=== PATIENT | male | born 1990 | race Caucasian/White ===

== ENCOUNTER 2017-03-06 12:39 | Emergency (ER) | payer SELFPAY ==
--- NOTE | 2017-03-06 13:00 | PDOC ---
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 Patient states has had no fever, chills lower abdominal pain, back pain, change in urine pattern or change in bowel pattern. Patient states has been seen here in the past and was told to follow-up with [facility] but states he didn't, since symptoms resolved. Patient states no recent travel, recent illness, recent change in weight, rashes, chest pain,shortness of breath, or recent sick contacts,. Timing/Duration: reports: getting worse, intermittent Quality: reports: cramping, sharpness Abdominal Pain Onset Location: reports: epigastric Pain Radiation: reports: RUQ, LUQ Activities at Onset: reports: none Aggravating Factors: improves with: None Alleviating Factors: improves with: None <Dary Moyer - Last Filed: 03/06/17 18:46> <Angelica Erazo - Last Filed: 03/06/17 20:44> - General Chief Complaint: Pain Stated Complaint: ABD PAIN Time Seen by Provider: 03/06/17 12:50 Past History - Travel Traveled outside of the country in the last 30 days: No Close contact w/someone who was outside of country & ill: No - Psycho/Social/Smoking Cessation Hx Anxiety: No Suicidal Ideation: No Smoking History: Current every day smoker Number of Cigarettes Smoked Daily: 10 Substance Use Type: Alcohol, Marijuana Hx Substance Use Treatment: Yes Patient Lives Alone: No <Dary Moyer - Last Filed: 03/06/17 18:46> <Angelica Erazo - Last Filed: 03/06/17 20:44> - Past Medical History Allergies/Adverse Reactions: Allergies Allergy/AdvReac Type Severity Reaction Status Date / Time No Known Allergies Allergy Verified 03/06/17 13:09 Home Medications: Ambulatory Orders Famotidine [Pepcid] 40 mg PO DAILY #10 tablet 04/03/14 Ondansetron [Zofran *Odt*] 8 mg SL TID PRN #21 od.tablet 03/06/17 Abd/GI Specific PMHX - Complaint Specific PMHX Colitis: No Gall Bladder Disease: No GERD: No 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)) GI Ulcer Disease: No <Dary Moyer - Last Filed: 03/06/17 18:46> Review of Systems - Review of Systems Able to Perform ROS?: Yes Is the patient limited Kosovan proficient: No Constitutional: No: Symptoms Reported HEENTM: No: Symptoms Reported Respiratory: No: Symptoms reported ABD/GI: Yes: Nausea, Poor Appetite, Poor Fluid Intake, Vomiting, Abdominal cramping : No: Symptoms Reported Musculoskeletal: No: Symptoms Reported Integumentary: No: Symptoms Reported Neurological: No: Symptoms reported Endocrine: No: Symptoms Reported Hematologic/Lymphatic: No: Symptoms Reported <Dary Moyer - Last Filed: 03/06/17 18:46> *Physical Exam - Physical Exam General Appearance: Yes: Nourished, Appropriately Dressed. No: Apparent Distress HEENT: positive: Pharynx Normal (dry) Neck: positive: Supple Respiratory/Chest: positive: Lungs Clear, Normal Breath Sounds. negative: Respiratory Distress, Accessory Muscle Use Cardiovascular: positive: Regular Rhythm, Bradycardia. negative: Murmur Gastrointestinal/Abdominal: positive: Soft, Tenderness (greater in the epigastric region. moderate tenderness to right upper quadrant. Negative [place] sign, mild rebound and guarding.) Musculoskeletal: negative: CVA Tenderness Extremity: positive: Normal Capillary Refill Integumentary: positive: Normal Color, Warm, Moist Neurologic: positive: Normal Mood/Affect, Motor Strength 5/5 (ambulatoruy) <Dary Moyer - Last Filed: 03/06/17 18:46> - Vital Signs Last Vital Signs Temp Pulse Resp BP Pulse Ox 97.9 F 48 L 16 131/86 100 03/06/17 12:40 03/06/17 12:40 03/06/17 12:40 03/06/17 12:40 03/06/17 12:40 <Angelica Erazo - Last Filed: 03/06/17 20:44> ED Treatment Course - LABORATORY CBC & Chemistry Diagram: 03/06/17 14:19 03/06/17 14:19 <Dary Moyer - Last Filed: 03/06/17 18:46> - LABORATORY CBC & Chemistry Diagram: 03/06/17 14:19 03/06/17 14:19 - ADDITIONAL ORDERS Additional order review: Laboratory Results 03/06/17 03/06/17 03/06/17 18:25 17:20 17:20 Sodium Potassium Chloride Carbon Dioxide Anion Gap BUN Creatinine Creat Clearance w eGFR Random Glucose Lactic Acid 1.6 Calcium Magnesium Total Bilirubin AST ALT Alkaline Phosphatase Total Protein Albumin Lipase Urine Color Ltyellow Urine Appearance Clear Urine pH 6.0 Urine Protein Negative Urine Glucose (UA) Negative Urine Ketones 1+ H Urine Blood Negative Urine Nitrite Negative Urine Bilirubin Negative Urine Urobilinogen Negative Ur Leukocyte Esterase Negative Opiates Screen Negative Methadone Screen Negative Barbiturate Screen Negative Phencyclidine Screen Negative Ur Amphetamines Screen Negative MDMA (Ecstasy) Screen Negative Benzodiazepines Screen Negative Cocaine Screen Negative U Marijuana (THC) Screen Positive 03/06/17 14:19 Sodium 143 Potassium 3.8 Chloride 104 Carbon Dioxide 23 Anion Gap 16 BUN 8 D Creatinine 1.0 Creat Clearance w eGFR > 60 Random Glucose 141 H D Lactic Acid Calcium 10.2 H Magnesium 2.4 D Total Bilirubin 1.7 H D AST 23 ALT 41 D Alkaline Phosphatase 119 H Total Protein 8.2 Albumin 4.9 Lipase 62 L Urine Color Urine Appearance Urine pH Urine Protein Urine Glucose (UA) Urine Ketones Urine Blood Urine Nitrite Urine Bilirubin Urine Urobilinogen Ur Leukocyte Esterase Opiates Screen Methadone Screen Barbiturate Screen Phencyclidine Screen Ur Amphetamines Screen MDMA (Ecstasy) Screen Benzodiazepines Screen Cocaine Screen U Marijuana (THC) Screen 03/06/17 14:19 RBC 5.61 H MCV 85.6 MCHC 33.3 RDW 13.1 MPV 10.1 Neutrophils % 87.9 H Lymphocytes % 7.6 L D Monocytes % 3.9 Eosinophils % 0.1 Basophils % 0.5 - Medications Given in the ED: ED Medications Discontinued Medications Generic Name Dose Route Start Last Admin Trade Name Freq PRN Reason Stop Dose Admin Diphenhydramine HCl 50 mg 03/06/17 13:03 03/06/17 13:45 Benadryl Injection - IVPB 03/06/17 13:04 50 mg ONCE ONE Administration Sodium Chloride 1,000 mls @ 1,000 mls/hr 03/06/17 13:03 03/06/17 13:45 Normal Saline - IV 03/06/17 14:02 1,000 mls/hr ASDIR STA Administration Famotidine/Sodium Chloride 20 50 mls @ 100 mls/hr 03/06/17 13:04 03/06/17 13:45 mg/ Miscellaneous IVPB 03/06/17 13:33 100 mls/hr ONCE ONE Administration Sodium Chloride 1,000 mls @ 1,000 mls/hr 03/06/17 15:08 03/06/17 15:45 Normal Saline - IV 03/06/17 16:07 1,000 mls/hr ASDIR STA Administration Ketorolac Tromethamine 30 mg 03/06/17 13:04 03/06/17 13:45 Toradol Injection - IVPUSH 03/06/17 13:05 30 mg ONCE ONE Administration Metoclopramide HCl 10 mg 03/06/17 13:03 03/06/17 13:45 Reglan Injection - IVPB 03/06/17 13:04 10 mg ONCE ONE Administration Ondansetron HCl 4 mg 03/06/17 16:09 03/06/17 16:02 Zofran Injection IVPUSH 03/06/17 16:10 4 mg NOW ONE Administration <Angelica Erazo - Last Filed: 03/06/17 20:44> Medical Decision Making - Medical Decision Making 03/06/17 13:27 Patient for evaluation of nausea vomiting and abdominal pain since yesterday. Patient CM had point tenderness to the epigastric right upper quadrant and left upper quadrant region. Patient had normal bowel sounds and no distention. Patient with history of EtOH and marijuana use. Patient concerning for cyclic vomiting versus gastritis versus Enteritis versus pancreatitis. Patient ordered for CBC, comp, magnesium, lipase and urinalysis, urine drug toxicology, Benadryl, Pepcid, Zofran and Toradol. Patient also ordered for IV fluids. 03/06/17 15:07 Laboratory Tests 03/06/17 03/06/17 14:19 14:19 WBC 15.4 H Hgb 16.0 Hct 48.0 Neutrophils % 87.9 H Lymphocytes % 7.6 L D Sodium 143 Potassium 3.8 Chloride 104 Anion Gap 16 BUN 8 D Creatinine 1.0 Random Glucose 141 H D Calcium 10.2 H Magnesium 2.4 D Total Bilirubin 1.7 H D Alkaline Phosphatase 119 H Lipase 62 L 03/06/17 18:47 Laboratory Tests 03/06/17 17:20 Urine Ketones 1+ H Urine Blood Negative Urine Nitrite Negative Ur Leukocyte Esterase Negative Patient's lactic acid was now sent. Urine drug toxicology pending. Patient requesting ice chips with water. Patient given pitcher as requested. Patient will be reevaluated shortly. <Dary Moyer - Last Filed: 03/06/17 18:46> *DC/Admit/Observation/Transfer <ComfortDary - Last Filed: 03/06/17 18:46> - Discharge Dispostion Admit: No <Angelica Erazo - Last Filed: 03/06/17 20:44> Diagnosis at time of Disposition: Cyclical vomiting Qualifiers: Vomiting Intractability: non-intractable Nausea presence: with nausea Qualified Code(s): G43.A0 - Cyclical vomiting, not intractable - Discharge Dispostion Disposition: HOME Condition at time of disposition: Stable - Prescriptions Prescriptions: Ondansetron [Zofran *Odt*] 8 mg SL TID PRN #21 od.tablet PRN Reason: Nausea And/Or Vomiting - Patient Instructions Printed Discharge Instructions: DI for Vomiting -- Adult
[2017-03-06] MEDS ORDERED: METOCLOPRAMIDE HCL INJECTION 10 MG/2 ML VIAL IVPB ONE (13:03)
[2017-03-06] MEDS ORDERED: SODIUM CHLORIDE 1,000 ML IV STA ×2 (13:03→15:08)
[2017-03-06] MEDS ORDERED: KETOROLAC TROMETHAMINE 30 MG/1 ML VIAL IVPUSH ONE (13:04)
[2017-03-06] MEDS ORDERED: FAMOTIDINE 20 MG/50 ML IVPB 20 MG in PREMIX 50 IVPB ONE (13:04)
[2017-03-06 13:09] VITALS: BP 131/86; PULSE 48; TEMP 97.9; BMI 22.8
[2017-03-06] MEDS ORDERED: METOCLOPRAMIDE HCL INJECTION 10 MG/2 ML VIAL ONE (13:45)
[2017-03-06] MEDS ORDERED: FAMOTIDINE 20 MG/50 ML IVPB 50 ML IVPB ONE (13:46)
[2017-03-06] MEDS ORDERED: KETOROLAC TROMETHAMINE 30 MG/1 ML VIAL ONE (13:46)
[2017-03-06 14:38] LABS: BASOPHIL 0.5 % (0-2.0); EOSINOPHIL 0.1 % (0-4.5); MCH 28.5 pg (25.7-33.7); MCHC 33.3 g/dl (32.0-35.9); MEAN CELL VOLUME 85.6 fl (80-96); MEAN PLT VOLUME 10.1 fl (7.5-11.1); NEUTROPHILS 87.9 % (42.8-82.8); PLATELET COUNT 257 K/MM3 (134-434); RDW 13.1 % (11.9-15.9); WHITE BLOOD COUNT 15.4 K/mm3 (4.0-10.0)
[2017-03-06 14:57] LABS: ALBUMIN 4.9 g/dl (3.4-5.0); ALK PHOS 119 U/L (45-117); ANION GAP 16 (8-16); BILIRUBIN,TOTAL 1.7 mg/dL (0.2-1.0); CALCIUM 10.2 mg/dL (8.5-10.1); CO2 23 mmol/L (21-32); GLUCOSE,RANDOM 141 mg/dL (74-106); MAGNESIUM 2.4 mg/dL (1.8-2.4); SGOT/AST 23 U/L (15-37); SGPT/ALT 41 U/L (12-78); TOT PROT 8.2 g/dl (6.4-8.2)
[2017-03-06] MEDS ORDERED: ONDANSETRON 4 MG/2 ML VIAL ONE (16:02)
[2017-03-06] MEDS ORDERED: ONDANSETRON 4 MG/2 ML VIAL IVPUSH ONE (16:09)
--- NOTE | 2017-03-06 16:22 | PDOC ---
*Physical Exam - Vital Signs Last Vital Signs Temp Pulse Resp BP Pulse Ox 97.9 F 48 L 16 131/86 100 03/06/17 12:40 03/06/17 12:40 03/06/17 12:40 03/06/17 12:40 03/06/17 12:40 ED Treatment Course - LABORATORY CBC & Chemistry Diagram: 03/06/17 14:19 03/06/17 14:19 - ADDITIONAL ORDERS Additional order review: Laboratory Results 03/06/17 14:19 Sodium 143 Potassium 3.8 Chloride 104 Carbon Dioxide 23 Anion Gap 16 BUN 8 D Creatinine 1.0 Creat Clearance w eGFR > 60 Random Glucose 141 H D Calcium 10.2 H Magnesium 2.4 D Total Bilirubin 1.7 H D AST 23 ALT 41 D Alkaline Phosphatase 119 H Total Protein 8.2 Albumin 4.9 Lipase 62 L 03/06/17 14:19 RBC 5.61 H MCV 85.6 MCHC 33.3 RDW 13.1 MPV 10.1 Neutrophils % 87.9 H Lymphocytes % 7.6 L D Monocytes % 3.9 Eosinophils % 0.1 Basophils % 0.5 - Medications Given in the ED: ED Medications Discontinued Medications Generic Name Dose Route Start Last Admin Trade Name Freq PRN Reason Stop Dose Admin Diphenhydramine HCl 50 mg 03/06/17 13:03 03/06/17 13:45 Benadryl Injection - IVPB 03/06/17 13:04 50 mg ONCE ONE Administration Sodium Chloride 1,000 mls @ 1,000 mls/hr 03/06/17 13:03 03/06/17 13:45 Normal Saline - IV 03/06/17 14:02 1,000 mls/hr ASDIR STA Administration Famotidine/Sodium Chloride 20 50 mls @ 100 mls/hr 03/06/17 13:04 03/06/17 13:45 mg/ Miscellaneous IVPB 03/06/17 13:33 100 mls/hr ONCE ONE Administration Sodium Chloride 1,000 mls @ 1,000 mls/hr 03/06/17 15:08 03/06/17 15:45 Normal Saline - IV 03/06/17 16:07 1,000 mls/hr ASDIR STA Administration Ketorolac Tromethamine 30 mg 03/06/17 13:04 03/06/17 13:45 Toradol Injection - IVPUSH 03/06/17 13:05 30 mg ONCE ONE Administration Metoclopramide HCl 10 mg 03/06/17 13:03 03/06/17 13:45 Reglan Injection - IVPB 03/06/17 13:04 10 mg ONCE ONE Administration Ondansetron HCl 4 mg 03/06/17 16:09 03/06/17 16:02 Zofran Injection IVPUSH 03/06/17 16:10 4 mg NOW ONE Administration Medical Decision Making - Medical Decision Making 03/06/17 16:19 Pt seen with [employer]. I agree with the assessment and management as outlined with the following summary: 26y/o M PSA with h/o cyclical vomiting syndrome p/w intractable vomiting. VS as noted epigastric discomfort without guarding/rebound labs/chemistries pain control, nausea control ivf hydration reassess *DC/Admit/Observation/Transfer Diagnosis at time of Disposition: Cyclic vomiting syndrome Qualifiers: Vomiting Intractability: non-intractable Nausea presence: with nausea Qualified Code(s): G43.A0 - Cyclical vomiting, not intractable
[2017-03-06 18:13] LABS: URINE APPEARANCE CLEAR; URINE BILIRUBIN NEGATIVE (NEGATIVE); URINE BLOOD NEGATIVE (NEGATIVE); URINE COLOR LTYELLOW; URINE GLUCOSE (UA) NEGATIVE (NEGATIVE); URINE KETONE 1+ (NEGATIVE); URINE LEUK ESTERASE NEGATIVE (NEGATIVE); URINE NITRITE NEGATIVE (NEGATIVE); URINE PROTEIN NEGATIVE (NEGATIVE); URINE UROBILINOGEN NEGATIVE mg/dL (0.2-1.0)
[2017-03-06 19:19] LABS: URINE MARIJUANA THC POSITIVE ng/ml (CUTOFF=50)
--- NOTE | 2017-03-06 20:52 | PDOC ---
*Physical Exam - Vital Signs Last Vital Signs Temp Pulse Resp BP Pulse Ox 97.9 F 48 L 16 131/86 100 03/06/17 12:40 03/06/17 12:40 03/06/17 12:40 03/06/17 12:40 03/06/17 12:40 - Physical Exam Comments: Sign-out received from outgoing ER provider Comfort. Pt interviewed and examined. Ancillary studies reviewed. Patient reassessed. At this time patient states he is feeling better and no longer has nausea or vomiting. He has eaten without any subsequent vomiting. Patient is nontender in the abdomen. Will discharge with Zofran rx and f/u with GI. ED Treatment Course - LABORATORY CBC & Chemistry Diagram: 03/06/17 14:19 03/06/17 14:19 - ADDITIONAL ORDERS Additional order review: Laboratory Results 03/06/17 03/06/17 03/06/17 18:25 17:20 17:20 Sodium Potassium Chloride Carbon Dioxide Anion Gap BUN Creatinine Creat Clearance w eGFR Random Glucose Lactic Acid 1.6 Calcium Magnesium Total Bilirubin AST ALT Alkaline Phosphatase Total Protein Albumin Lipase Urine Color Ltyellow Urine Appearance Clear Urine pH 6.0 Urine Protein Negative Urine Glucose (UA) Negative Urine Ketones 1+ H Urine Blood Negative Urine Nitrite Negative Urine Bilirubin Negative Urine Urobilinogen Negative Ur Leukocyte Esterase Negative Opiates Screen Negative Methadone Screen Negative Barbiturate Screen Negative Phencyclidine Screen Negative Ur Amphetamines Screen Negative MDMA (Ecstasy) Screen Negative Benzodiazepines Screen Negative Cocaine Screen Negative U Marijuana (THC) Screen Positive 03/06/17 14:19 Sodium 143 Potassium 3.8 Chloride 104 Carbon Dioxide 23 Anion Gap 16 BUN 8 D Creatinine 1.0 Creat Clearance w eGFR > 60 Random Glucose 141 H D Lactic Acid Calcium 10.2 H Magnesium 2.4 D Total Bilirubin 1.7 H D AST 23 ALT 41 D Alkaline Phosphatase 119 H Total Protein 8.2 Albumin 4.9 Lipase 62 L Urine Color Urine Appearance Urine pH Urine Protein Urine Glucose (UA) Urine Ketones Urine Blood Urine Nitrite Urine Bilirubin Urine Urobilinogen Ur Leukocyte Esterase Opiates Screen Methadone Screen Barbiturate Screen Phencyclidine Screen Ur Amphetamines Screen MDMA (Ecstasy) Screen Benzodiazepines Screen Cocaine Screen U Marijuana (THC) Screen 03/06/17 14:19 RBC 5.61 H MCV 85.6 MCHC 33.3 RDW 13.1 MPV 10.1 Neutrophils % 87.9 H Lymphocytes % 7.6 L D Monocytes % 3.9 Eosinophils % 0.1 Basophils % 0.5 - Medications Given in the ED: ED Medications Discontinued Medications Generic Name Dose Route Start Last Admin Trade Name Freq PRN Reason Stop Dose Admin Diphenhydramine HCl 50 mg 03/06/17 13:03 03/06/17 13:45 Benadryl Injection - IVPB 03/06/17 13:04 50 mg ONCE ONE Administration Sodium Chloride 1,000 mls @ 1,000 mls/hr 03/06/17 13:03 03/06/17 13:45 Normal Saline - IV 03/06/17 14:02 1,000 mls/hr ASDIR STA Administration Famotidine/Sodium Chloride 20 50 mls @ 100 mls/hr 03/06/17 13:04 03/06/17 13:45 mg/ Miscellaneous IVPB 03/06/17 13:33 100 mls/hr ONCE ONE Administration Sodium Chloride 1,000 mls @ 1,000 mls/hr 03/06/17 15:08 03/06/17 15:45 Normal Saline - IV 03/06/17 16:07 1,000 mls/hr ASDIR STA Administration Ketorolac Tromethamine 30 mg 03/06/17 13:04 03/06/17 13:45 Toradol Injection - IVPUSH 03/06/17 13:05 30 mg ONCE ONE Administration Metoclopramide HCl 10 mg 03/06/17 13:03 03/06/17 13:45 Reglan Injection - IVPB 03/06/17 13:04 10 mg ONCE ONE Administration Ondansetron HCl 4 mg 03/06/17 16:09 03/06/17 16:02 Zofran Injection IVPUSH 03/06/17 16:10 4 mg NOW ONE Administration *DC/Admit/Observation/Transfer Diagnosis at time of Disposition: Cyclical vomiting Qualifiers: Vomiting Intractability: non-intractable Nausea presence: with nausea Qualified Code(s): G43.A0 - Cyclical vomiting, not intractable - Discharge Dispostion Disposition: HOME Condition at time of disposition: Stable - Prescriptions Prescriptions: Ondansetron [Zofran *Odt*] 8 mg SL TID PRN #21 od.tablet PRN Reason: Nausea And/Or Vomiting - Referrals Referrals: DiGiorno,Ajay, DO [Staff Physician] - Tess Shearer MD [Staff Physician] - - Patient Instructions Printed Discharge Instructions: DI for Vomiting -- Adult Additional Instructions: Please take medications as prescribed. As discussed, you must follow up with a primary care doctor and mortgage funder this week. If you experience any worsening abdominal pain, chest pain, persistent vomiting, blood in your vomit, diarrhea, fever, chills, or any new or worsening symptoms, please return to the ER. - Post Discharge Activity
== END 2017-03-06 21:18 | disposition home or self-care (01) ==
LOC: JER 12:39
PROC: 3E0333Z Introduction of Anti-inflammatory into Peripheral Vein, Percutaneous Approach (ICD-10-PCS; principal; 2017-03-06)
PROC: 3E033GC Introduction of Other Therapeutic Substance into Peripheral Vein, Percutaneous Approach (ICD-10-PCS; 2017-03-06)
PROC: 3E0337Z Introduction of Electrolytic and Water Balance Substance into Peripheral Vein, Percutaneous Approach (ICD-10-PCS; 2017-03-06)
DX: G43.A0 Cyclical vomiting, in migraine, not intractable (principal); F17.210 Nicotine dependence, cigarettes, uncomplicated
CPT/HCPCS: 36415; 80053; 80307; 81003; 83605; 83690; 83735; 85025; 99282-25

== ENCOUNTER 2017-08-17 09:08 | Observation (INO) | payer OTHER ==
[2017-08-17 09:23] VITALS: BMI 24.3
--- NOTE | 2017-08-17 09:27 | PDOC ---
History of Present Illness - General History Source: Patient Exam Limitations: No Limitations - History of Present Illness Initial Comments: 08/17/17 10:05 Patient is a 27 year old male with a significant past medical history of Gastritis, and Pancreatitis who presents to the ED with complaints of vomiting and diarrhea that 2 days. Patient reports experiencing sudden onset of vomiting diarrhea 2 days ago while at home, that has showed no signs of subsiding. He reports experiencing 5 episodes of loose watery diarrhea yesterday and 3 episodes today. Patient reports experiencing intermittent diffuse abdominal pain secondary to vomiting. Patient states he went to [facility] yesterday afternoon for the same symptoms and was given IV Zofran which he states relieved his symptoms. He reports being given PO zofran after being discharged and states it did not help. Denies chest pain, SOB. Denies fevers, chills. Denies contact with sick individuals, out of state travelling. Denies change diet. Denies any other symptoms. Allergies: None Social history: Current smoker. Former drinker (last 2 months). Current Marijuana use. Surgical history: Appendectomy PMD: None <Jason Og - Last Filed: 08/17/17 10:05> <Rochelle Bass - Last Filed: 08/17/17 12:45> - General Chief Complaint: Vomiting/Diarrhea Stated Complaint: VOMITING Time Seen by Provider: 08/17/17 09:26 Past History <Jason Og - Last Filed: 08/17/17 10:05> - Past Medical History COPD: No GI Disorders: Yes (pancreatitis) - Surgical History Appendectomy: Yes - Suicide/Smoking/Psychosocial Hx Smoking History: Current some day smoker Number of Cigarettes Smoked Daily: 10 Information on smoking cessation initiated: No Hx Alcohol Use: No Drug/Substance Use Hx: No Substance Use Type: Alcohol, Marijuana Hx Substance Use Treatment: Yes <Rochelle Bass - Last Filed: 08/17/17 12:45> - Past Medical History Allergies/Adverse Reactions: Allergies Allergy/AdvReac Type Severity Reaction Status Date / Time No Known Allergies Allergy Verified 08/17/17 09:21 Home Medications: Ambulatory Orders NK [No Known Home Medication] 08/17/17 Review of Systems - Review of Systems Able to Perform ROS?: Yes Comments:: 08/17/17 10:05 GENERAL/CONSTITUTIONAL: No fever or chills. No weakness. HEAD, EYES, EARS, NOSE AND THROAT: No change in vision. No ear pain or discharge. No sore throat. CARDIOVASCULAR: No chest pain or shortness of breath. RESPIRATORY: No wheezing, or hemoptysis. GASTROINTESTINAL: +Nausea. +Vomiting. +Diarrhea. No constipation. GENITOURINARY: No dysuria, frequency, or change in urination. MUSCULOSKELETAL: No joint or muscle swelling or pain. No neck or back pain. SKIN: No rash NEUROLOGIC: No headache, vertigo, loss of consciousness, or change in strength/ sensation. ENDOCRINE: No increased thirst. No abnormal weight change. HEMATOLOGIC/LYMPHATIC: No anemia, easy bleeding, or history of blood clots. ALLERGIC/IMMUNOLOGIC: No hives or skin allergy. All Other Systems: Reviewed and Negative <Jason Og - Last Filed: 08/17/17 10:05> *Physical Exam - Vital Signs Last Vital Signs Temp Pulse Resp BP Pulse Ox 97.5 F L 65 18 140/90 100 08/17/17 09:19 08/17/17 09:19 08/17/17 09:19 08/17/17 09:19 08/17/17 09:19 - Physical Exam Comments: 08/17/17 10:05 GENERAL: Awake, alert, and fully oriented, in no acute distress HEAD: No signs of trauma EYES: PERRLA, EOMI, sclera anicteric, conjunctiva clear ENT: Auricles normal inspection, hearing grossly normal, nares patent, oropharynx clear without exudates. Moist mucosa NECK: Normal ROM, supple, no lymphadenopathy, JVD, or masses LUNGS: Breath sounds equal, clear to auscultation bilaterally. No wheezes, and no crackles HEART: Regular rate and rhythm, normal S1 and S2, no murmurs, rubs or gallops ABDOMEN: Soft, nontender, normoactive bowel sounds. No guarding, no rebound. No masses EXTREMITIES: Normal range of motion, no edema. No clubbing or cyanosis. No cords, erythema, or tenderness NEUROLOGICAL: Cranial nerves II through XII grossly intact. Normal speech, SKIN: Warm, Dry, normal turgor, no rashes or lesions noted. <Jason Og - Last Filed: 08/17/17 10:05> - Vital Signs Last Vital Signs Temp Pulse Resp BP Pulse Ox 97.5 F L 65 18 140/90 100 08/17/17 09:19 08/17/17 09:19 08/17/17 09:19 08/17/17 09:19 08/17/17 09:19 <Rochelle Bass - Last Filed: 08/17/17 12:45> ED Treatment Course - LABORATORY CBC & Chemistry Diagram: 08/17/17 09:30 08/17/17 09:30 - ADDITIONAL ORDERS Additional order review: Laboratory Results 08/17/17 08/17/17 09:30 09:30 Sodium 138 Potassium 4.0 Chloride 105 Carbon Dioxide 21 Anion Gap 12 BUN 13 D Creatinine 1.0 Creat Clearance w eGFR > 60 Random Glucose 134 H Calcium 9.0 Total Bilirubin 4.1 H D AST 27 ALT 37 Alkaline Phosphatase 103 Total Protein 7.1 Albumin 4.2 Lipase 298 Alcohol, Quantitative < 5.0 08/17/17 09:30 RBC 5.34 MCV 83.2 MCHC 33.2 RDW 13.3 MPV 9.3 Neutrophils % 78.5 Lymphocytes % 14.0 D Monocytes % 6.6 Eosinophils % 0.3 D Basophils % 0.6 - Medications Given in the ED: ED Medications Discontinued Medications Generic Name Dose Route Start Last Admin Trade Name Angella PRN Reason Stop Dose Admin Ondansetron HCl 4 mg 08/17/17 09:31 08/17/17 09:39 Zofran Injection IVPUSH 08/17/17 09:32 4 mg ONCE ONE Administration Sodium Chloride 1,000 ml 08/17/17 09:31 08/17/17 09:32 Normal Saline - IV 08/17/17 09:32 1,000 ml ONCE ONE Administration <Jason Og - Last Filed: 08/17/17 10:05> - LABORATORY CBC & Chemistry Diagram: 08/17/17 09:30 08/17/17 09:30 <Rochelle Bass - Last Filed: 08/17/17 12:45> *DC/Admit/Observation/Transfer - Attestations Scribe Attestion: 08/17/17 10:06 Documentation prepared by Jason Og, acting as medical interpreter for Rochelle Bass MD, /DO. <Jason Og - Last Filed: 08/17/17 10:05> - Discharge Dispostion Admit: Yes <Rochelle Bass - Last Filed: 08/17/17 12:45> Diagnosis at time of Disposition: Jaundice - Discharge Dispostion Condition at time of disposition: Good
[2017-08-17] MEDS ORDERED: ONDANSETRON 4 MG/2 ML VIAL IVPUSH ONE (09:31)
[2017-08-17] MEDS ORDERED: SODIUM CHLORIDE 0.9% 1000 ML INFUS.BAG IV ONE ×2 (09:31→12:27)
[2017-08-17] MEDS ORDERED: ONDANSETRON 4 MG/2 ML VIAL ONE (09:36)
[2017-08-17] MEDS ORDERED: FAMOTIDINE 20 MG/50 ML IVPB 20 MG/50 ML MG IVPB ONE (09:36)
[2017-08-17 09:45] LABS: BASO % 0.6 % (0-2.0); EOS % 0.3 % (0-4.5); HEMATOCRIT 44.4 % (35.4-49); HEMOGLOBIN 14.7 GM/dL (11.7-16.9); MCH 27.6 pg (25.7-33.7); MCHC 33.2 g/dl (32.0-35.9); MEAN CELL VOLUME 83.2 fl (80-96); MEAN PLT VOLUME 9.3 fl (7.5-11.1); MONO % 6.6 % (3.8-10.2); NEUT % 78.5 % (42.8-82.8); PLATELET COUNT 220 K/MM3 (134-434); RBC 5.34 M/mm3 (4.00-5.60); RDW 13.3 % (11.9-15.9); WHITE BLOOD COUNT 13.2 K/mm3 (4.0-10.0)
[2017-08-17 09:58] LABS: ALBUMIN 4.2 g/dl (3.4-5.0); ANION GAP 12 (8-16); BILIRUBIN,TOTAL 4.1 mg/dL (0.2-1.0); BLOOD UREA NITROGEN 13 mg/dL (7-18); CHLORIDE 105 mmol/L (98-107); CO2 21 mmol/L (21-32); GLUCOSE,RANDOM 134 mg/dL (74-106); SGOT/AST 27 U/L (15-37); SGPT/ALT 37 U/L (12-78); SODIUM 138 mmol/L (136-145); TOT PROT 7.1 g/dl (6.4-8.2)
[2017-08-17 09:59] LABS: ALK PHOS 103 U/L (45-117)
[2017-08-17 10:00] LABS: LIPASE 298 U/L (73-393)
[2017-08-17] MEDS ORDERED: FAMOTIDINE IV 20 MG/12 ML VIAL IVPUSH SCH (10:00)
[2017-08-17] MEDS ORDERED: METOCLOPRAMIDE HCL INJECTION 10 MG/2 ML VIAL IVPUSH ONE (10:21)
[2017-08-17] MEDS ORDERED: METOCLOPRAMIDE HCL INJECTION 10 MG/2 ML VIAL ONE (10:29)
[2017-08-17] MEDS ORDERED: DEXTROSE 5%-0.45% SALINE 1,000 ML IV SCH (12:30)
--- NOTE | 2017-08-17 12:32 | PN ---
Physical Exam: SUBJECTIVE: Patient seen and examined OBJECTIVE: Vital Signs Period Temp Pulse Resp BP Sys/Galindo Pulse Ox Last 24 Hr 97.5 F 65 18 140/90 100 GENERAL: The patient is awake, alert, and fully oriented, in no acute distress. HEAD: Normal with no signs of trauma. EYES: PERRL, extraocular movements intact, sclera anicteric, conjunctiva clear. No ptosis. ENT: Ears normal, nares patent, oropharynx clear without exudates, moist mucous membranes. NECK: Trachea midline, full range of motion, supple. LUNGS: Breath sounds equal, clear to auscultation bilaterally, no wheezes, no crackles, no accessory muscle use. HEART: Regular rate and rhythm, S1, S2 without murmur, rub or gallop. ABDOMEN: Soft, nontender, nondistended, normoactive bowel sounds, no guarding, no rebound, no hepatosplenomegaly, no masses. EXTREMITIES: 2+ pulses, warm, well-perfused, no edema. NEUROLOGICAL: Cranial nerves II through XII grossly intact. Normal speech, gait not observed. PSYCH: Normal mood, normal affect. SKIN: Warm, dry, normal turgor, no rashes or lesions noted Laboratory Results - last 24 hr 08/17/17 08/17/17 08/17/17 09:30 09:30 09:30 WBC 13.2 H RBC 5.34 Hgb 14.7 Hct 44.4 MCV 83.2 MCH 27.6 MCHC 33.2 RDW 13.3 Plt Count 220 MPV 9.3 Neutrophils % 78.5 Lymphocytes % 14.0 D Monocytes % 6.6 Eosinophils % 0.3 D Basophils % 0.6 Sodium 138 Potassium 4.0 Chloride 105 Carbon Dioxide 21 Anion Gap 12 BUN 13 D Creatinine 1.0 Creat Clearance w eGFR > 60 Random Glucose 134 H Calcium 9.0 Total Bilirubin 4.1 H D AST 27 ALT 37 Alkaline Phosphatase 103 Total Protein 7.1 Albumin 4.2 Lipase 298 Alcohol, Quantitative < 5.0 Active Medications Generic Name Dose Route Start Last Admin Trade Name Freq PRN Reason Stop Dose Admin Famotidine 20 mg in 12 mls @ 144 mls/hr 08/17/17 10:00 08/17/17 09:39 Pepcid 20 Mg/12 Ml Push IVPUSH 144 mls/hr BID MACIE Administration Dextrose/Sodium Chloride 1,000 mls @ 125 mls/hr 08/17/17 12:30 D5-1/2ns - IV ASDIR MACIE ASSESSMENT/PLAN:
[2017-08-17] MEDS ORDERED: PROCHLORPERAZINE INJECTION 10 MG/2 ML VIAL IVPB ONE (12:42)
[2017-08-17] MEDS ORDERED: PROCHLORPERAZINE INJECTION 10 MG/2 ML VIAL ONE (12:45)
--- NOTE | 2017-08-17 14:32 | HP ---
CHIEF COMPLAINT: Vomitng, diarrhea PCP: None HISTORY OF PRESENT ILLNESS: 27 year-old male with a PMH significant for ETOH and marijuana abuse, and recurrent bouts of abdominal pain, unclear if ever actually diagnosed with pancreatitis v. cyclic vomiting syndrome v. gastritis. Presents to the ED today with complaints of vomiting and diarrhea x 2 days. He reports 5 episodes of loose watery diarrhea yesterday and 3 episodes today. Also complains of intermittent diffuse abdominal pain secondary to vomiting. Patient was evaluated at [facility] yesterday for the same symptoms, treated with IV Zofran, given a prescription for metronidazole, and released. Patient has take two doses of metronidazole. Patient denies fever, sweats, chills. ER course was notable for: (1) WBC 13.2, Total bili 4.1; lipase 298 (2) NS x 2L (3) Zofran x 1; Reglan x 1; Companzine x 1 Recent Travel: No PAST MEDICAL HISTORY: ETOH abuse Marijuana abuse Abdominal pain PAST SURGICAL HISTORY: Appendectomy Social History: Smoking: current every day Alcohol: stopped 2 months ago Drugs: marijuana Family History: Allergies No Known Allergies Allergy (Verified 08/17/17 09:21) HOME MEDICATIONS: Home Medications Medication Instructions Recorded NK [No Known Home Medication] 08/17/17 REVIEW OF SYSTEMS CONSTITUTIONAL: Absent: fever, chills, diaphoresis, generalized weakness, malaise, loss of appetite, weight change HEENT: Absent: rhinorrhea, nasal congestion, throat pain, throat swelling, difficulty swallowing, mouth swelling, ear pain, eye pain, visual changes CARDIOVASCULAR: Absent: chest pain, syncope, palpitations, irregular heart rate, lightheadedness , peripheral edema RESPIRATORY: Absent: cough, shortness of breath, dyspnea with exertion, orthopnea, wheezing, stridor, hemoptysis GASTROINTESTINAL: Absent: abdominal pain, abdominal distension, nausea, vomiting, diarrhea, constipation, melena, hematochezia GENITOURINARY: Absent: dysuria, frequency, urgency, hesitancy, hematuria, flank pain, genital pain MUSCULOSKELETAL: Absent: myalgia, arthralgia, joint swelling, back pain, neck pain SKIN: Absent: rash, itching, pallor HEMATOLOGIC/IMMUNOLOGIC: Absent: easy bleeding, easy bruising, lymphadenopathy, frequent infections ENDOCRINE: Absent: unexplained weight gain, unexplained weight loss, heat intolerance, cold intolerance NEUROLOGIC: Absent: headache, focal weakness or paresthesias, dizziness, unsteady gait, seizure, mental status changes, bladder or bowel incontinence PSYCHIATRIC: Absent: anxiety, depression, suicidal or homicidal ideation, hallucinations. PHYSICAL EXAMINATION Vital Signs - 24 hr 08/17/17 08/17/17 08/17/17 09:19 12:40 13:33 Temperature 97.5 F L 98.9 F Pulse Rate 65 Pulse Rate [ 69 Left Radial] Respiratory 18 18 Rate Blood Pressure 140/90 Blood Pressure 149/92 [Right Arm] O2 Sat by Pulse 100 100 Oximetry (%) GENERAL: Awake, alert, and fully oriented, in no acute distress. HEAD: Normal with no signs of trauma. EYES: Pupils equal, round and reactive to light, extraocular movements intact, sclera anicteric, conjunctiva clear. No lid lag. EARS, NOSE, THROAT: Ears normal, nares patent, oropharynx clear without exudates. Moist mucous membranes. NECK: Normal range of motion, supple without lymphadenopathy, JVD, or masses. LUNGS: Breath sounds equal, clear to auscultation bilaterally. No wheezes, and no crackles. No accessory muscle use. HEART: Regular rate and rhythm, normal S1 and S2 without murmur, rub or gallop. ABDOMEN: Soft, nontender, not distended, normoactive bowel sounds, no guarding, no rebound, no masses. No hepatomegaly or splenomegaly. MUSCULOSKELETAL: Normal range of motion at all joints. No bony deformities or tenderness. No CVA tenderness. UPPER EXTREMITIES: 2+ pulses, warm, well-perfused. No cyanosis. No clubbing. No peripheral edema. LOWER EXTREMITIES: 2+ pulses, warm, well-perfused. No calf tenderness. No peripheral edema. NEUROLOGICAL: Cranial nerves II-XII intact. Normal speech. Normal gait. PSYCHIATRIC: Cooperative. Good eye contact. Appropriate mood and affect. SKIN: Warm, dry, normal turgor, no rashes or lesions noted, normal capillary refill. Laboratory Results - last 24 hr 08/17/17 08/17/17 08/17/17 09:30 09:30 09:30 WBC 13.2 H RBC 5.34 Hgb 14.7 Hct 44.4 MCV 83.2 MCH 27.6 MCHC 33.2 RDW 13.3 Plt Count 220 MPV 9.3 Neutrophils % 78.5 Lymphocytes % 14.0 D Monocytes % 6.6 Eosinophils % 0.3 D Basophils % 0.6 Sodium 138 Potassium 4.0 Chloride 105 Carbon Dioxide 21 Anion Gap 12 BUN 13 D Creatinine 1.0 Creat Clearance w eGFR > 60 Random Glucose 134 H Calcium 9.0 Total Bilirubin 4.1 H D AST 27 ALT 37 Alkaline Phosphatase 103 Total Protein 7.1 Albumin 4.2 Lipase 298 Alcohol, Quantitative < 5.0 ASSESSMENT/PLAN: 27 year-old male with a PMH significant for ETOH and marijuana abuse, and recurrent bouts of abdominal pain. Placed on observation for vomiting and diarrhea. Found to have markedly elevated total bilirubin. Vomiting/diarrhea --afebrile, mild leukocytosis --IV fluids --Reglan PRN --get ECG to determine QT interval --stool studies, c. diff Acute colitis --US: a proximal extraheaptic bile duct measures 2mm in diameter; mid to distal CBD not well-visualized --lipase upper limit of normal --GI consult Hyperbilirubinemia --total bili 4.1, was 1.7 in 02/2017 --need direct bili level --Utox +marijuana, otherwise negative --possible Gilbert's syndrome FEN Fluids: D51/2 @ 125mL/hr Electrolytes: replete as indicated Nutrition: NPO except meds; ice chips OK; advance to BRAT diet in am ETOH abuse --utox negative for alcohol --monitor closely for s/s withdrawal FEN Fluids: D51/2 @ 125mL/hr Electrolytes: replete as indicated Nutrition: NPO DVT prophylaxis: oob, ambulation Dispo: continues to require observation. Full code. Visit type - Emergency Visit Emergency Visit: Yes ED Registration Date: 08/17/17 Care time: The patient presented to the Emergency Department on the above date and was hospitalized for further evaluation of their emergent condition. - New Patient This patient is new to me today: Yes Date on this admission: 08/17/17 - Critical Care Critical Care patient: No
--- NOTE | 2017-08-17 15:57 | EKG ---
Test Reason : Blood Pressure : / mmHG Vent. Rate : 052 BPM Atrial Rate : 052 BPM P-R Int : 210 ms QRS Dur : 096 ms QT Int : 406 ms P-R-T Axes : 026 075 053 degrees QTc Int : 377 ms SINUS BRADYCARDIA WITH SINUS ARRHYTHMIA WITH 1ST DEGREE A-V BLOCK OTHERWISE NORMAL ECG NO PREVIOUS ECGS AVAILABLE Confirmed by MD BECCA, NIRU ([id number]) on 08/17/2017 3:57:01 PM Referred By: Confirmed By:NIRU HUDSON MD
[2017-08-17] MEDS ORDERED: ONDANSETRON 4 MG/2 ML VIAL IVPUSH PRN (16:03)
[2017-08-17 16:52] VITALS: BP 152/68; PULSE 58; TEMP 98.6
--- NOTE | 2017-08-17 17:59 | CON.GI ---
Consult Consult Specialty:: GI - History of Present Illness History of Present Illness: A 27 yom with acute (72 hrs) nausea, vomiting and lose stools, but not diarrhea. Reports no ill contacts, travel, camping out, may have eaten out. Deneis hematochezia, hematemesis. Had similar episodes of nausea and vomiting in the past. Used to do street drugs and percosets with last use 9 month ago. Occasionally smokes marijuana. No family history of IBD - History Source History Provided By: Patient - Alcohol/Substance Use Hx Alcohol Use: No - Smoking History Smoking history: Current some day smoker Aproximately how many cigarettes per day: 10 Home Medications - Allergies Allergies/Adverse Reactions: Allergies Allergy/AdvReac Type Severity Reaction Status Date / Time No Known Allergies Allergy Verified 08/17/17 09:21 - Home Medications Home Medications: Ambulatory Orders NK [No Known Home Medication] 08/17/17 Family Disease History - Family Disease History Family History: Unremarkable (non-contributory) Review of Systems Findings/Remarks: As per H&P, HPI Physical Exam-GI Vital Signs: Vital Signs Temperature 98.6 F 08/17/17 16:50 Pulse Rate 58 L 08/17/17 16:50 Respiratory Rate 20 08/17/17 16:50 Blood Pressure 152/68 08/17/17 16:50 O2 Sat by Pulse Oximetry (%) 98 08/17/17 15:29 Constitutional: Yes: Diaphoresis, Other (somnolent) Eyes: Yes: Conjunctiva Clear. No: Sclera Icterus HENT: Yes: Atraumatic Neck: Yes: Supple Cardiovascular: Yes: Regular Rate and Rhythm Respiratory: Yes: Regular Edema: No Neurological: Yes: Other (somnolent, arousable) Labs: CBC, BMP 08/17/17 09:30 08/17/17 09:30 Imaging - Results Cat Scan: Report Reviewed (pancolitis) Ultrasound: Report Reviewed Problem List - Problems (1) Colitis Code(s): K52.9 - NONINFECTIVE GASTROENTERITIS AND COLITIS, UNSPECIFIED (2) Vomiting Code(s): R11.10 - VOMITING, UNSPECIFIED (3) Gilbert syndrome Code(s): E80.4 - GILBERT SYNDROME (4) Nausea Code(s): R11.0 - NAUSEA Assessment/Plan A 27 yom with acute onset of nausea, vomiting and lose stools 3 days ago. Elevated isolated total bilirubin Acute colitis, IBD less likely, but needs to be ruled out in an appropriate age patient Gilbert's ?Street drug use (?ongoing) Recommend: Antiemetic Stool for c. diff, OP, cultures CBC, CMP with direct birubin in am IV, PO hydration No food tonight, water, ice, OK. BRAT diet in am if no events overnight Urine drug screen Colonoscopy in 4-6 weeks as OP
--- NOTE | 2017-08-17 19:41 | DS ---
Physical Exam: SUBJECTIVE: Patient seen and examined OBJECTIVE: Vital Signs Period Temp Pulse Resp BP Sys/Galindo Pulse Ox Last 24 Hr 97.5 F-98.9 F 58-74 18-20 138-152/68-92 98-100 PHYSICAL EXAM GENERAL: The patient is awake, alert, and fully oriented, in no acute distress. HEAD: Normal with no signs of trauma. EYES: PERRL, extraocular movements intact, sclera anicteric, conjunctiva clear. ENT: Ears normal, nares patent, oropharynx clear without exudates, moist mucous membranes. NECK: Trachea midline, full range of motion, supple. LUNGS: Breath sounds equal, clear to auscultation bilaterally, no wheezes, no crackles, no accessory muscle use. HEART: Regular rate and rhythm, S1, S2 without murmur, rub or gallop. ABDOMEN: Soft, nontender, nondistended, normoactive bowel sounds, no guarding, no rebound, no hepatosplenomegaly, no masses. EXTREMITIES: 2+ pulses, warm, well-perfused, no edema. NEUROLOGICAL: Cranial nerves II through XII grossly intact. Normal speech, gait not observed. PSYCH: Normal mood, normal affect. SKIN: Warm, dry, normal turgor, no rashes or lesions noted. LABS Laboratory Results - last 24 hr 08/17/17 08/17/17 08/17/17 09:30 09:30 09:30 WBC 13.2 H RBC 5.34 Hgb 14.7 Hct 44.4 MCV 83.2 MCH 27.6 MCHC 33.2 RDW 13.3 Plt Count 220 MPV 9.3 Neutrophils % 78.5 Lymphocytes % 14.0 D Monocytes % 6.6 Eosinophils % 0.3 D Basophils % 0.6 Sodium 138 Potassium 4.0 Chloride 105 Carbon Dioxide 21 Anion Gap 12 BUN 13 D Creatinine 1.0 Creat Clearance w eGFR > 60 POC Glucometer Random Glucose 134 H Calcium 9.0 Total Bilirubin 4.1 H D AST 27 ALT 37 Alkaline Phosphatase 103 Total Protein 7.1 Albumin 4.2 Lipase 298 Alcohol, Quantitative < 5.0 08/17/17 16:47 WBC RBC Hgb Hct MCV MCH MCHC RDW Plt Count MPV Neutrophils % Lymphocytes % Monocytes % Eosinophils % Basophils % Sodium Potassium Chloride Carbon Dioxide Anion Gap BUN Creatinine Creat Clearance w eGFR POC Glucometer 136 Random Glucose Calcium Total Bilirubin AST ALT Alkaline Phosphatase Total Protein Albumin Lipase Alcohol, Quantitative HOSPITAL COURSE: Date of Admission:08/17/17 Date of Discharge: 08/17/17 Discharge Summary Reason For Visit: JAUNDICE Condition: Guarded - Instructions Disposition: AGAINST MEDICAL ADVICE - Home Medications Comprehensive Discharge Medication List: Ambulatory Orders NK [No Known Home Medication] 08/17/17
[2017-08-17] MEDS ORDERED: metroNIDAZOLE 250 MG TABLET PO SCH (22:00)
[2017-08-18 15:14] LABS: BILIRUBIN,DIRECT 0.4 mg/dL (0.0-0.2)
== END 2017-08-17 19:16 | disposition left against medical advice (07) ==
LOC: JER 09:08 → JERBED 12:45
PROVIDERS: ADMIT Internal Medicine; ATTEND Nurse Practitioner Acute Care
PROC: 3E033GC Introduction of Other Therapeutic Substance into Peripheral Vein, Percutaneous Approach (ICD-10-PCS; principal; 2017-08-17)
PROC: 3E0337Z Introduction of Electrolytic and Water Balance Substance into Peripheral Vein, Percutaneous Approach (ICD-10-PCS; 2017-08-17)
DX: R17 Unspecified jaundice (principal); K52.9 Noninfective gastroenteritis and colitis, unspecified; E80.6 Other disorders of bilirubin metabolism; F17.210 Nicotine dependence, cigarettes, uncomplicated; F10.10 Alcohol abuse, uncomplicated; F12.10 Cannabis abuse, uncomplicated; R11.10 Vomiting, unspecified; E80.4 Gilbert syndrome
CPT/HCPCS: 36415; 74177-TC; 76705-TC; 80053; 80076; 80307; 82962; 83690; 85025; 93005; 93010; 96374; 96375; 96376; 99283-25; G0378

== ENCOUNTER 2017-08-18 04:17 | Observation (INO) | payer OTHER ==
[2017-08-18 05:12] VITALS: BP 135/92; PULSE 88; TEMP 98.2; BMI 24.5
--- NOTE | 2017-08-18 05:38 | PDOC ---
History of Present Illness - General Chief Complaint: Vomiting/Diarrhea Stated Complaint: ABDOMINAL PAIN Time Seen by Provider: 08/18/17 04:57 History Source: Patient, EMS Exam Limitations: No Limitations - History of Present Illness Initial Comments: This is a 27 YOM with h/o gastritis, pancreatitis, prior alcoholism and street drug use (none recently), appendectomy, who returns to the ED with abdominal pain, nausea, and vomiting after leaving AMA from the inpatient side of [facility] yesterday evening (<12 hours ago). The patient initially presented to the [facility] ED with vomiting and diarrhea, and was admitted with jaundice (t. bili measured 4.1 yesterday). He was seen by gastroenterology in consult. He left AMA, and he himself states this is because he urinated on himself and was not allowed a shower. He was feeling well at that time, but shortly after arriving home he had exacerbated suprapubic pain and an acute worsening of his nausea and vomiting. He went to the [place] ED and was given zofran and Dilaudid for his symptoms. He left [place] AM because they were too busy and came here instead. He has continued suprapubic pain and nausea, but denies any testicular pain or swelling, or any other new symptoms. Past History - Past Medical History Allergies/Adverse Reactions: Allergies Allergy/AdvReac Type Severity Reaction Status Date / Time No Known Allergies Allergy Verified 08/17/17 09:21 Home Medications: Ambulatory Orders NK [No Known Home Medication] 08/17/17 COPD: No GI Disorders: Yes (pancreatitis) - Surgical History Appendectomy: Yes - Suicide/Smoking/Psychosocial Hx Smoking History: Current every day smoker Number of Cigarettes Smoked Daily: 10 Information on smoking cessation initiated: No Hx Alcohol Use: Yes (past use) Drug/Substance Use Hx: Yes Substance Use Type: Alcohol, Marijuana Hx Substance Use Treatment: Yes Abd/GI Specific PMHX - Complaint Specific PMHX Colitis: No Gall Bladder Disease: No GERD: No 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)) GI Ulcer Disease: No *Physical Exam - Vital Signs Last Vital Signs Temp Pulse Resp BP Pulse Ox 98.2 F 88 18 135/92 99 08/18/17 04:40 08/18/17 04:40 08/18/17 04:40 08/18/17 04:40 08/18/17 04:40 - Physical Exam General Appearance: Yes: Nourished, Appropriately Dressed, Other (well appearing , appropriate, not obviously jaundiced, answering questions appropriately). No : Apparent Distress HEENT: positive: EOMI, Normal Voice, Hearing Grossly Normal. negative: Scleral Icterus (R), Scleral Icterus (L), Nasal Congestion Neck: positive: Trachea midline, Supple. negative: Tender, Rigid Respiratory/Chest: positive: Lungs Clear, Normal Breath Sounds. negative: Respiratory Distress, Crackles, Rhonchi, Stridor, Wheezing Cardiovascular: positive: Regular Rhythm, Regular Rate. negative: Murmur Gastrointestinal/Abdominal: positive: Normal Bowel Sounds, Soft. negative: Tender, Organomegaly, Pulsatile Mass, Guarding Musculoskeletal: positive: Normal Inspection. negative: Decreased Range of Motion, Vertebral Tenderness Extremity: positive: Normal Capillary Refill, Normal Inspection, Normal Range of Motion. negative: Tender, Cyanosis Integumentary: positive: Normal Color, Dry, Warm. negative: Erythema, Rash, Bruising Neurologic: positive: metaphysics teacher II-XII NML intact (grossly), Fully Oriented, Alert, Normal Mood/Affect, Normal Response, Motor Strength 5/5, Finger to Nose (normal) , Other (no asterixis). negative: EOM Palsy, Facial Droop, Confused, Disoriented ED Treatment Course - LABORATORY CBC & Chemistry Diagram: 08/18/17 05:49 08/18/17 05:49 Medical Decision Making - Medical Decision Making 27M with h/o gastritis, pancreatitis, prior EtOH and street drug use (none recently) p/w suprapubic pain, n/v x3 days. On exam VS wnl and he is in no acute distress, no grossly jaundiced, no active vomiting. DDX IBNLT gastritis, pancreatitis, DM/DKA, withdrawal, hyperbilirubinemia, etc. Ordered are CBCD, CMP, lipase, UA, cx, CXE, EKG. 08/18/17 06:16 Patient noting nausea, ordered is 4 mg Zofran IVPUSH, 1 L NS bolus. 08/18/17 06:[address] English who kindly agrees with admission to Med/Surg Obs. Decision to admit placed. *DC/Admit/Observation/Transfer Diagnosis at time of Disposition: Jaundice, Nausea Vomiting Qualifiers: Vomiting type: unspecified Vomiting Intractability: non-intractable Nausea presence: with nausea Qualified Code(s): R11.2 - Nausea with vomiting, unspecified Abdominal pain Qualifiers: Abdominal location: unspecified location Qualified Code(s): R10.9 - Unspecified abdominal pain - Discharge Dispostion Condition at time of disposition: Guarded Admit: Yes - Referrals - Patient Instructions - Post Discharge Activity
[2017-08-18 05:58] LABS: BASO % 0.4 % (0-2.0); HEMATOCRIT 41.5 % (35.4-49); HEMOGLOBIN 13.8 GM/dL (11.7-16.9); LYMPH % 12.1 % (8-40); MCH 28.1 pg (25.7-33.7); MCHC 33.2 g/dl (32.0-35.9); MEAN CELL VOLUME 84.6 fl (80-96); MEAN PLT VOLUME 10.1 fl (7.5-11.1); MONO % 6.3 % (3.8-10.2); NEUT % 81.2 % (42.8-82.8); PLATELET COUNT 198 K/MM3 (134-434); RDW 13.4 % (11.9-15.9); WHITE BLOOD COUNT 10.6 K/mm3 (4.0-10.0)
[2017-08-18] MEDS ORDERED: ONDANSETRON 4 MG/2 ML VIAL ONE (06:06)
[2017-08-18] MEDS ORDERED: SODIUM CHLORIDE 0.9% 1000 ML INFUS.BAG IV ONE (06:16)
[2017-08-18] MEDS ORDERED: ONDANSETRON 4 MG/2 ML VIAL IVPUSH ONE (06:16)
[2017-08-18 06:22] LABS: ALBUMIN 3.9 g/dl (3.4-5.0); ALK PHOS 89 U/L (45-117); ANION GAP 9 (8-16); BILIRUBIN,DIRECT 0.4 mg/dL (0.0-0.2); BILIRUBIN,TOTAL 2.7 mg/dL (0.2-1.0); BLOOD UREA NITROGEN 9 mg/dL (7-18); CALCIUM 8.6 mg/dL (8.5-10.1); CHLORIDE 104 mmol/L (98-107); CO2 26 mmol/L (21-32); CREATININE 0.9 mg/dL (0.7-1.3); GLUCOSE,RANDOM 107 mg/dL (74-106); SGOT/AST 21 U/L (15-37); SGPT/ALT 34 U/L (12-78); SODIUM 139 mmol/L (136-145); TOT PROT 6.8 g/dl (6.4-8.2)
[2017-08-18 06:27] LABS: URINE APPEARANCE CLOUDY; URINE BILIRUBIN NEGATIVE (NEGATIVE); URINE BLOOD NEGATIVE (NEGATIVE); URINE COLOR YELLOW; URINE GLUCOSE (UA) NEGATIVE (NEGATIVE); URINE KETONE 1+ (NEGATIVE); URINE LEUK ESTERASE NEGATIVE (NEGATIVE); URINE NITRITE NEGATIVE (NEGATIVE); URINE PROTEIN NEGATIVE (NEGATIVE); URINE UROBILINOGEN NEGATIVE mg/dL (0.2-1.0)
--- NOTE | 2017-08-18 08:32 | HP ---
CHIEF COMPLAINT: abdominal pain PCP: none HISTORY OF PRESENT ILLNESS: This is a 27 year old male with PMHx of gastritis, pancreatitis, prior alcoholism and street drug use, appendectomy, who returned to the ED with abdominal pain, nausea, vomiting. The patient was at [facility] yesterday and left AMA because he was "not able to take a shower" and then went to [facility] but left AMA because "the wait was too long". He states he is still having abdominal pain, sharp, epigastric. The patient states he is still having non-bloody diarrhea. He denies nausea, vomiting, headache, dizziness, chest pain , palpitations. ER course was notable for: (1) Temp 98.2, pulse 88, BP 135/92, resp 18, O2 99% on RA (2) WBC 10.6. (3) Chest X-ray: with no acute chest pathology Recent Travel: denies PAST MEDICAL HISTORY: as above PAST SURGICAL HISTORY: as above Social History: Smoking: current every day smoker Alcohol: stopped 2 months ago Drugs: marijuana Family History: Allergies No Known Allergies Allergy (Verified 08/17/17 09:21) HOME MEDICATIONS: Home Medications Medication Instructions Recorded NK [No Known Home Medication] 08/17/17 REVIEW OF SYSTEMS CONSTITUTIONAL: Absent: fever, chills, diaphoresis, generalized weakness, malaise, loss of appetite, weight change HEENT: Absent: rhinorrhea, nasal congestion, throat pain, throat swelling, difficulty swallowing, mouth swelling, ear pain, eye pain, visual changes CARDIOVASCULAR: Absent: chest pain, syncope, palpitations, irregular heart rate , lightheadedness, peripheral edema RESPIRATORY: Absent: cough, shortness of breath, dyspnea with exertion, orthopnea, wheezing, stridor, hemoptysis GASTROINTESTINAL: Diarrhea x3 days. Absent: abdominal pain, abdominal distension , nausea, vomiting, constipation, melena, hematochezia GENITOURINARY: Absent: dysuria, frequency, urgency, hesitancy, hematuria, flank pain, genital pain MUSCULOSKELETAL: Absent: myalgia, arthralgia, joint swelling, back pain, neck pain SKIN: Absent: rash, itching, pallor HEMATOLOGIC/IMMUNOLOGIC: Absent: easy bleeding, easy bruising, lymphadenopathy, frequent infections ENDOCRINE:Absent: unexplained weight gain, unexplained weight loss, heat intolerance, cold intolerance NEUROLOGIC: Absent: headache, focal weakness or paresthesias, dizziness, unsteady gait, seizure, mental status changes, bladder or bowel incontinence PSYCHIATRIC: Absent: anxiety, depression, suicidal or homicidal ideation, hallucinations. PHYSICAL EXAMINATION Vital Signs - 24 hr 08/18/17 04:40 Temperature 98.2 F Pulse Rate 88 Respiratory 18 Rate Blood Pressure 135/92 O2 Sat by Pulse 99 Oximetry (%) GENERAL: Awake, alert, and fully oriented, in no acute distress. HEAD: Normal with no signs of trauma. EYES: Pupils equal, round and reactive to light, extraocular movements intact, sclera anicteric, conjunctiva clear. No lid lag. EARS, NOSE, THROAT: Ears normal, nares patent, oropharynx clear without exudates. Moist mucous membranes. NECK: Normal range of motion, supple without lymphadenopathy, JVD, or masses. LUNGS: Breath sounds equal, clear to auscultation bilaterally. No wheezes, and no crackles. No accessory muscle use. HEART: Regular rate and rhythm, normal S1 and S2 without murmur, rub or gallop. ABDOMEN: Diffuse mild abdominal tenderness. Soft, not distended, normoactive bowel sounds, no guarding, no rebound, no masses. No hepatomegaly or splenomegaly. MUSCULOSKELETAL: Normal range of motion at all joints. No bony deformities or tenderness. No CVA tenderness. UPPER EXTREMITIES: 2+ pulses, warm, well-perfused. No cyanosis. No clubbing. No peripheral edema. LOWER EXTREMITIES: 2+ pulses, warm, well-perfused. No calf tenderness. No peripheral edema. NEUROLOGICAL: Cranial nerves II-XII intact. Normal speech. Gait not observed PSYCHIATRIC: Cooperative. Good eye contact. Appropriate mood and affect. SKIN: Warm, dry, normal turgor, no rashes or lesions noted, normal capillary refill. Laboratory Results - last 24 hr 08/18/17 08/18/17 08/18/17 05:49 05:49 05:49 WBC 10.6 H RBC 4.90 Hgb 13.8 Hct 41.5 MCV 84.6 MCH 28.1 MCHC 33.2 RDW 13.4 Plt Count 198 MPV 10.1 Neutrophils % 81.2 Lymphocytes % 12.1 Monocytes % 6.3 Eosinophils % 0.0 D Basophils % 0.4 Sodium 139 Potassium 4.0 Chloride 104 Carbon Dioxide 26 D Anion Gap 9 BUN 9 D Creatinine 0.9 Creat Clearance w eGFR > 60 Random Glucose 107 H D Calcium 8.6 Total Bilirubin 2.7 H D Direct Bilirubin 0.4 H AST 21 D ALT 34 Alkaline Phosphatase 89 Total Protein 6.8 Albumin 3.9 Lipase 56 L Urine Color Urine Appearance Urine pH Ur Specific [place] Urine Protein Urine Glucose (UA) Urine Ketones Urine Blood Urine Nitrite Urine Bilirubin Urine Urobilinogen Ur Leukocyte Esterase 08/18/17 05:55 WBC RBC Hgb Hct MCV MCH MCHC RDW Plt Count MPV Neutrophils % Lymphocytes % Monocytes % Eosinophils % Basophils % Sodium Potassium Chloride Carbon Dioxide Anion Gap BUN Creatinine Creat Clearance w eGFR Random Glucose Calcium Total Bilirubin Direct Bilirubin AST ALT Alkaline Phosphatase Total Protein Albumin Lipase Urine Color Yellow Urine Appearance Cloudy Urine pH 8.0 D Ur Specific [place] 1.021 Urine Protein Negative Urine Glucose (UA) Negative Urine Ketones 1+ H Urine Blood Negative Urine Nitrite Negative Urine Bilirubin Negative Urine Urobilinogen Negative Ur Leukocyte Esterase Negative Assessment: This is a 27 year old male with PMHx of gastritis, pancreatitis, prior alcoholism and street drug use, appendectomy, who returned to the ED with abdominal pain, nausea, vomiting. Plan: 1) Abd pain - NPO - Possible colitis on CTAP from 08/17 - F/u stool cultures, c.diff, ova and parasite - Per GI BRAT diet if no events, however patient still with diarrhea, water and ice ok - IVF - Colonoscopy in 4-6 weeks as outpatient - F/u GI consult 2) Elevated bilirubin - Trending down 4.1->2.7 - Liver ultrasound with no evidence of cholelithiasis, acute cholecystitis or biliary ductal dilatation - Continue to trend 3) F/E/N: - NPO - Monitor electrolytes 4) Prophylaxis: - OOB ambulating 5) Dispo: - Once condition improves CODE STATUS: FULL CODE Visit type - Emergency Visit Emergency Visit: Yes ED Registration Date: 08/18/17 Care time: The patient presented to the Emergency Department on the above date and was hospitalized for further evaluation of their emergent condition. - New Patient This patient is new to me today: Yes Date on this admission: 08/18/17 - Critical Care Critical Care patient: No
--- NOTE | 2017-08-18 13:46 | DS ---
Physical Examination Vital Signs: Vital Signs Temperature 98.2 F 08/18/17 04:40 Pulse Rate 88 08/18/17 04:40 Respiratory Rate 18 08/18/17 04:40 Blood Pressure 135/92 08/18/17 04:40 O2 Sat by Pulse Oximetry (%) 99 08/18/17 04:40 Labs: CBC, BMP 08/18/17 05:49 08/18/17 05:49 Discharge Summary Reason For Visit: JAUNDICE, NAUSEA,VOMITING Hospital Course: Please see H&P from today for HPI Notified by nurse that the patient left AMA without reevaluation or being officially discharged. Condition: Guarded - Instructions Disposition: AGAINST MEDICAL ADVICE - Home Medications Comprehensive Discharge Medication List: Ambulatory Orders NK [No Known Home Medication] 08/17/17 This patient is new to me today: Yes Date on this admission: 08/18/17 Emergency Visit: Yes ED Registration Date: 08/18/17 Care time: The patient presented to the Emergency Department on the above date and was hospitalized for further evaluation of their emergent condition. Critical Care patient: No - Discharge Referral Referred to [facility] Med P.C.: No
--- NOTE | 2017-08-18 15:25 | EKG ---
Test Reason : Blood Pressure : / mmHG Vent. Rate : 063 BPM Atrial Rate : 063 BPM P-R Int : 214 ms QRS Dur : 090 ms QT Int : 416 ms P-R-T Axes : 026 073 050 degrees QTc Int : 425 ms SINUS RHYTHM WITH 1ST DEGREE A-V BLOCK WHEN COMPARED WITH ECG OF 17-AUG-2017 15:23, NO SIGNIFICANT CHANGE WAS FOUND Confirmed by Bar Forrester ([id number]) on 08/18/2017 3:24:48 PM Referred By: Confirmed By:Bar Forrester
== END 2017-08-18 12:15 | disposition left against medical advice (07) ==
LOC: JER 04:17 → JERBED 06:28 → UNDOADMOB 06:39 → JERBED 06:39
PROVIDERS: ADMIT Internal Medicine; ATTEND Registered Nurse
PROC: 3E033GC Introduction of Other Therapeutic Substance into Peripheral Vein, Percutaneous Approach (ICD-10-PCS; principal; 2017-08-18)
PROC: 3E0337Z Introduction of Electrolytic and Water Balance Substance into Peripheral Vein, Percutaneous Approach (ICD-10-PCS; 2017-08-18)
DX: R17 Unspecified jaundice (principal); R11.2 Nausea with vomiting, unspecified; R10.9 Unspecified abdominal pain; F17.210 Nicotine dependence, cigarettes, uncomplicated
CPT/HCPCS: 36415; 71046-TC; 80053; 81003; 82248; 83690; 85025; 87086; 93005; 93010; 96374; 99282-25; G0378

== ENCOUNTER 2017-11-25 10:41 | Observation (INO) | payer OTHER | END 2017-11-26 10:19 | disposition left against medical advice (07) | LOC: JER 10:41 → JERBED 14:58 → J6S 16:26 | PROVIDERS: ADMIT Internal Medicine | PROC: 3E033GC Introduction of Other Therapeutic Substance into Peripheral Vein, Percutaneous Approach (ICD-10-PCS; principal; 2017-11-25) | PROC: 3E0337Z Introduction of Electrolytic and Water Balance Substance into Peripheral Vein, Percutaneous Approach (ICD-10-PCS; 2017-11-25) | PROC: 3E023GC Introduction of Other Therapeutic Substance into Muscle, Percutaneous Approach (ICD-10-PCS; 2017-11-25) | CPT/HCPCS: 36415; 71045-TC-FY; 74177-TC; 80048; 80053; 80076; 80307; 81003; 83605; 83690; 83735; 85025; 86140; 87040; 87045; 87046; 87086; 87324; 87449; 93005; 93010; 96361; 96372; 96374; 96375; 96376; 99284-25; G0378; J7030 ==

== ENCOUNTER 2018-01-02 12:17 | Observation (INO) | payer OTHER ==
[2018-01-02] MEDS ORDERED: ONDANSETRON 4 MG/2 ML VIAL ONE (12:32)
[2018-01-02] MEDS ORDERED: FAMOTIDINE 20 MG/50 ML IVPB 20 MG/50 ML MG IVPB ONE ×2 (12:35→12:46)
--- NOTE | 2018-01-02 12:38 | PDOC ---
History of Present Illness - General Chief Complaint: Nausea/Vomiting Stated Complaint: ABD PAIN Time Seen by Provider: 01/02/18 12:38 Past History - Past Medical History Allergies/Adverse Reactions: Allergies Allergy/AdvReac Type Severity Reaction Status Date / Time No Known Allergies Allergy Verified 01/02/18 12:30 Home Medications: Ambulatory Orders NK [No Known Home Medication] 08/17/17 COPD: No GI Disorders: Yes (pancreatitis) - Surgical History Appendectomy: Yes - Suicide/Smoking/Psychosocial Hx Smoking History: Current every day smoker Have you smoked in the past 12 months: Yes Number of Cigarettes Smoked Daily: 10 Information on smoking cessation initiated: No 'Breaking Loose' booklet given: 11/25/17 Hx Alcohol Use: No Drug/Substance Use Hx: Yes Substance Use Type: Alcohol, Marijuana Hx Substance Use Treatment: Yes *Physical Exam - Vital Signs Last Vital Signs Temp Pulse Resp BP Pulse Ox 97.8 F 56 L 24 97/67 100 01/02/18 12:26 01/02/18 12:26 01/02/18 12:26 01/02/18 12:26 01/02/18 12:26
[2018-01-02] MEDS ORDERED: ONDANSETRON 4 MG/2 ML VIAL IVPUSH ONE (12:45)
[2018-01-02] MEDS ORDERED: SODIUM CHLORIDE 1,000 ML IV STA ×2 (12:46→14:57)
[2018-01-02] MEDS ORDERED: ACETAMINOPHEN 1000 MG/100 ML VIAL (NON FORMULARY) IVPB ONE (12:46)
[2018-01-02] MEDS ORDERED: ACETAMINOPHEN INJECTION 100 ML IVPB ONE (12:48)
--- NOTE | 2018-01-02 12:51 | PDOC ---
History of Present Illness - General Chief Complaint: Nausea/Vomiting Stated Complaint: ABD PAIN Time Seen by Provider: 01/02/18 12:38 - History of Present Illness Initial Comments: 01/02/18 12:45 Mr. Seals is a 27 yo male w/ pmh of gastritis, pancreatitis, prior alcoholism and recreational drug abuse, and appendectomy who presents complaining of 1 day history of nausea and vomiting. He reports he woke up at 4:30am this morning with this pain and that he usually is able to treat pain by coming to the hospital and receiving pain meds and being admitted. Mr. Seals reports he had an endoscopy yesterday and was told that nothing was wrong although he cannot recall the name of his physician. Endorses a normal bowel movement this morning. The patient denies chest pain, shortness of breath, headache and dizziness. Denies fever, chills, diarrhea and constipation. Denies dysuria, frequency, urgency and hematuria. Allergies: NKDA Past History - Past Medical History Allergies/Adverse Reactions: Allergies Allergy/AdvReac Type Severity Reaction Status Date / Time No Known Allergies Allergy Verified 01/02/18 12:30 Home Medications: Ambulatory Orders NK [No Known Home Medication] 08/17/17 COPD: No GI Disorders: Yes (pancreatitis) - Surgical History Appendectomy: Yes - Suicide/Smoking/Psychosocial Hx Smoking History: Current every day smoker Have you smoked in the past 12 months: Yes Number of Cigarettes Smoked Daily: 10 Information on smoking cessation initiated: No 'Breaking Loose' booklet given: 11/25/17 Hx Alcohol Use: No Drug/Substance Use Hx: Yes Substance Use Type: Alcohol, Marijuana Hx Substance Use Treatment: Yes Review of Systems - Review of Systems Comments:: 01/02/18 12:56 GENERAL/CONSTITUTIONAL: No fever or chills. No weakness. HEAD, EYES, EARS, NOSE AND THROAT: No change in vision. No ear pain or discharge. No sore throat. CARDIOVASCULAR: No chest pain or shortness of breath RESPIRATORY: No cough, wheezing, or hemoptysis. GASTROINTESTINAL: +N/V as described. No diarrhea or constipation. GENITOURINARY: No dysuria, frequency, or change in urination. MUSCULOSKELETAL: No joint or muscle swelling or pain. No neck or back pain. SKIN: No rash NEUROLOGIC: No headache, vertigo, loss of consciousness, or change in strength/ sensation. ENDOCRINE: No increased thirst. No abnormal weight change HEMATOLOGIC/LYMPHATIC: No anemia, easy bleeding, or history of blood clots. ALLERGIC/IMMUNOLOGIC: No hives or skin allergy. *Physical Exam - Vital Signs Last Vital Signs Temp Pulse Resp BP Pulse Ox 97.8 F 56 L 24 97/67 100 01/02/18 12:26 01/02/18 12:26 01/02/18 12:26 01/02/18 12:26 01/02/18 12:26 - Physical Exam Comments: 01/02/18 12:56 GENERAL: Awake, alert, and fully oriented, in no acute distress HEAD: No signs of trauma, normocephalic, atraumatic EYES: PERRLA, EOMI, sclera anicteric, conjunctiva clear ENT: Auricles normal inspection, hearing grossly normal, nares patent, oropharynx clear without exudates. Moist mucosa NECK: Normal ROM, supple, no lymphadenopathy, JVD, or masses LUNGS: No distress, speaks full sentences, clear to auscultation bilaterally HEART: Regular rate and rhythm, normal S1 and S2, no murmurs, rubs or gallops, peripheral pulses normal and equal bilaterally. ABDOMEN: +Distractable abdominal TTP in all quadrants. Soft, normoactive bowel sounds. No guarding, no rebound. No masses EXTREMITIES: Normal inspection, Normal range of motion, no edema. No clubbing or cyanosis. NEUROLOGICAL: Cranial nerves II through XII grossly intact. Normal speech, normal gait, no focal sensorimotor deficits SKIN: Warm, Dry, normal turgor, no rashes or lesions noted. ED Treatment Course - LABORATORY CBC & Chemistry Diagram: 01/02/18 13:18 01/02/18 13:18 Medical Decision Making - Medical Decision Making 01/02/18 12:56 Mr. Selas is a well known 27 yo male w/ pmh as described who presents for evaluation of n/v. Given report of recent endoscopic procedure, flat/upright ordered to ensure no perforation. Fluids and medications given for symptomatic relief. CBC/CMP/lipase ordered for evaluation. 01/02/18 14:51 XR negative for free air. Patient continues to complain of nausea/vomiting. Patient seen to put fingers down throat in ER. Patient continues to request pain medications; discussed with patient that opioids could worsen his condition. PCP paged for admission for intractable n/v at this time. 01/02/18 14:[address] Roberts for observation. *DC/Admit/Observation/Transfer Diagnosis at time of Disposition: Cyclical vomiting Qualifiers: Vomiting Intractability: unspecified Nausea presence: unspecified Qualified Code(s): G43.A0 - Cyclical vomiting, not intractable - Discharge Dispostion Decision to Admit order: Yes - Referrals - Patient Instructions - Post Discharge Activity
[2018-01-02 13:22] LABS: BASO % 0.5 % (0-2.0); EOS % 0.2 % (0-4.5); HEMATOCRIT 42.3 % (35.4-49); HEMOGLOBIN 14.2 GM/dL (11.7-16.9); LYMPH % 10.4 % (8-40); MCHC 33.7 g/dl (32.0-35.9); MEAN CELL VOLUME 83.3 fl (80-96); MEAN PLT VOLUME 9.4 fl (7.5-11.1); MONO % 7.3 % (3.8-10.2); NEUT % 81.6 % (42.8-82.8); PLATELET COUNT 220 K/MM3 (134-434); RBC 5.08 M/mm3 (4.00-5.60); RDW 13.1 % (11.9-15.9); WHITE BLOOD COUNT 13.2 K/mm3 (4.0-10.0)
--- NOTE | 2018-01-02 13:32 | PDOC ---
Attending Attestation - Resident Resident Name: Yusuf Merlos - ED Attending Attestation I have performed the following: I have examined & evaluated the patient, The case was reviewed & discussed with the resident, I agree w/resident's findings & plan, Exceptions are as noted - HPI HPI: 01/02/18 13:31 Mr Seals is a 27 yo M who presents to the ER with a complaint of nausea and vomiting since 4:30 am He has a history of ETOH and marijuana abuse, recurrent episodes of abdominal pain, nausea, and vomiting. He has had multiple admissions for the same, ultimately diagnosed with Cyclical vomiting syndrome (heavy daily marijuana use). Of note, he had an endoscopy yesterday (which was reportedly negative) PAST MEDICAL HISTORY: ETOH abuse Marijuana abuse Abdominal pain Vomiting syndrome PAST SURGICAL HISTORY: Appendectomy Social History: Smoking: current every day Alcohol: last drink 6 months ago Drugs: marijuana Family History: Allergies No Known Allergies Allergy (Verified 11/25/17 10:57) 01/02/18 13:33 01/02/18 13:35 - Physicial Exam PE: 01/02/18 13:37 On examination This patient presents with a complaint of abdominal pain, nausea (+) vomiting No fevers or chills Pt has had several visits for the same complaints Will do labs Consider CT scan Pt given IVF, Pepcid, Zofran Will re assess - Medical Decision Making This patient presents requesting narcotic medications for his abdominal pain AND he is nauseous No fevers pt has had multiple presentations for these symptoms Labs sent IV medications given Pt will be placed on observation clinical impression: cyclical vomiting syndrome, initial presentation
[2018-01-02 13:55] LABS: ALBUMIN 4.3 g/dl (3.4-5.0); ALK PHOS 88 U/L (45-117); ANION GAP 9 (8-16); BILIRUBIN,TOTAL 3.8 mg/dL (0.2-1.0); BLOOD UREA NITROGEN 12 mg/dL (7-18); CALCIUM 9.4 mg/dL (8.5-10.1); CHLORIDE 106 mmol/L (98-107); CO2 24 mmol/L (21-32); CREATININE 1.1 mg/dL (0.7-1.3); GLUCOSE,RANDOM 131 mg/dL (74-106); LIPASE 54 U/L (73-393); POTASSIUM 3.7 mmol/L (3.5-5.1); SGOT/AST 14 U/L (15-37); SGPT/ALT 27 U/L (12-78); SODIUM 139 mmol/L (136-145); TOT PROT 7.4 g/dl (6.4-8.2)
[2018-01-02] MEDS ORDERED: MAG HYDROX/AL HYDROX/SIMETH 30 ML UNIT-DOSE CUP PO ONE (13:57)
[2018-01-02] MEDS ORDERED: HYOSCYAMINE SULFATE 0.125 MG TABLET PO ONE (13:59)
[2018-01-02] MEDS ORDERED: MAG HYDROX/AL HYDROX/SIMETH 30 ML UNIT-DOSE CUP ONE (14:00)
[2018-01-02 16:59] VITALS: BP 142/97; PULSE 57; TEMP 98.1; BMI 23.3
[2018-01-02] MEDS ORDERED: ONDANSETRON 4 MG/2 ML VIAL IVPUSH PRN ×3 (17:53→21:37)
[2018-01-02] MEDS ORDERED: DEXTROSE 5%-0.45% SALINE 1,000 ML IV SCH ×2 (18:00→21:45)
[2018-01-02 18:59] LABS: ACETAMINOPHEN 5.77 ug/mL
[2018-01-02 19:09] LABS: SALICYLATE <1.7 mg/dL
[2018-01-02] MEDS ORDERED: METOCLOPRAMIDE HCL INJECTION 10 MG/2 ML VIAL IVPUSH PRN (21:44)
[2018-01-02] MEDS ORDERED: PANTOPRAZOLE SODIUM 40 MG VIAL IVPUSH SCH (22:00)
[2018-01-02] MEDS ORDERED: PANTOPRAZOLE SODIUM 40 MG VIAL IVPB SCH (22:00)
== END 2018-01-02 19:58 | disposition left against medical advice (07) ==
LOC: JER 12:17 → JERBED 14:59 → J8W 16:58
PROVIDERS: ADMIT Family Medicine; ATTEND Family Medicine
PROC: 3E033GC Introduction of Other Therapeutic Substance into Peripheral Vein, Percutaneous Approach (ICD-10-PCS; principal; 2018-01-02)
PROC: 3E0337Z Introduction of Electrolytic and Water Balance Substance into Peripheral Vein, Percutaneous Approach (ICD-10-PCS; 2018-01-02)
PROC: 3E033NZ Introduction of Analgesics, Hypnotics, Sedatives into Peripheral Vein, Percutaneous Approach (ICD-10-PCS; 2018-01-02)
DX: G43.A0 Cyclical vomiting, in migraine, not intractable (principal); F17.200 Nicotine dependence, unspecified, uncomplicated
CPT/HCPCS: 36415; 74019-TC-FY; 80053; 80307; 83690; 85025; 96361; 96365; 96375; 99284-25; G0378; J0131; J7030

== ENCOUNTER 2018-06-24 08:02 | Emergency (ER) | payer SELFPAY ==
[2018-06-24 08:13] VITALS: BMI 24.3
[2018-06-24] MEDS ORDERED: SODIUM CHLORIDE 0.9% 1000 ML INFUS.BAG IV ONE (08:23)
[2018-06-24] MEDS ORDERED: ONDANSETRON 4 MG/2 ML VIAL IVPUSH ONE (08:24)
[2018-06-24] MEDS ORDERED: ONDANSETRON 4 MG/2 ML VIAL ONE (08:46)
[2018-06-24 09:07] LABS: BASO % 0.8 % (0-2.0); EOS % 0.1 % (0-4.5); HEMATOCRIT 45.1 % (35.4-49); HEMOGLOBIN 14.3 GM/dL (11.7-16.9); LYMPH % 12.2 % (8-40); MCH 27.7 pg (25.7-33.7); MCHC 31.8 g/dl (32.0-35.9); MEAN PLT VOLUME 9.3 fl (7.5-11.1); MONO % 5.2 % (3.8-10.2); NEUT % 81.7 % (42.8-82.8); PLATELET COUNT 197 K/MM3 (134-434); RBC 5.18 M/mm3 (4.00-5.60); RDW 13.5 % (11.9-15.9); WHITE BLOOD COUNT 15.8 K/mm3 (4.0-10.0)
[2018-06-24] MEDS ORDERED: METOCLOPRAMIDE HCL INJECTION 10 MG/2 ML VIAL IVPB ONE (09:37)
[2018-06-24] MEDS ORDERED: ACETAMINOPHEN 1000 MG/100 ML VIAL (NON FORMULARY) IVPB ONE (09:37)
[2018-06-24] MEDS ORDERED: METOCLOPRAMIDE HCL INJECTION 10 MG/2 ML VIAL ONE (09:40)
[2018-06-24] MEDS ORDERED: ACETAMINOPHEN INJECTION 100 ML IVPB ONE (09:40)
[2018-06-24 09:45] LABS: ALBUMIN 4.3 g/dl (3.4-5.0); ALK PHOS 90 U/L (45-117); ANION GAP 11 MMOL/L (8-16); BILIRUBIN,TOTAL 4.6 mg/dL (0.2-1); BLOOD UREA NITROGEN 17 mg/dL (7-18); CALCIUM 9.2 mg/dL (8.5-10.1); CHLORIDE 104 mmol/L (98-107); CO2 24 mmol/L (21-32); CREATININE 1.3 mg/dL (0.55-1.3); GLUCOSE,RANDOM 125 mg/dL (74-106); POTASSIUM 4.7 mmol/L (3.5-5.1); SGOT/AST 46 U/L (15-37); SGPT/ALT 37 U/L (13-61); SODIUM 139 mmol/L (136-145); TOT PROT 7.4 g/dl (6.4-8.2)
--- NOTE | 2018-06-24 10:10 | PDOC ---
History of Present Illness - General Chief Complaint: Nausea/Vomiting Stated Complaint: Nausea/Vomiting Time Seen by Provider: 06/24/18 09:53 History Source: Patient Exam Limitations: No Limitations - History of Present Illness Initial Comments: 28 yo M with hx of gastritis, pancreatitis, frequent cannabis use, and substance abuse presents to the emergency department with abdominal pain with concurrent nausea and vomiting. Per the patient, his symptoms began yesterday and has had several vomiting episodes that were non-hematemesis. His abdominal pain is located in the epigastric region, is constant, sharp, 10/10, radiates to the throat, and does not relieve with tylenol use. Per the patient, he is followed by a equipment operator [facility], but does not take any medications for his GI conditions. Denies the following: fever, chills, visual changes, headaches, chest pain, SOB, dysuria, hematuria, diarrhea, constipation, melena, hematochezia, and leg pain/swelling. 06/25/18 03:19 Past History - Past Medical History Allergies/Adverse Reactions: Allergies Allergy/AdvReac Type Severity Reaction Status Date / Time No Known Allergies Allergy Verified 06/24/18 08:10 Home Medications: Ambulatory Orders NK [No Known Home Medication] 08/17/17 COPD: No GI Disorders: Yes (pancreatitis, GASTRITS) - Surgical History Appendectomy: Yes - Suicide/Smoking/Psychosocial Hx Smoking History: Current some day smoker Have you smoked in the past 12 months: Yes Number of Cigarettes Smoked Daily: 5 Information on smoking cessation initiated: No 'Breaking Loose' booklet given: 01/02/18 Hx Alcohol Use: No Drug/Substance Use Hx: Yes Substance Use Type: Alcohol, Marijuana Hx Substance Use Treatment: No Review of Systems - Review of Systems Able to Perform ROS?: Yes (Refer to HPI) *Physical Exam - Vital Signs Last Vital Signs Temp Pulse Resp BP Pulse Ox 97.9 F 66 20 154/90 100 06/24/18 08:11 06/24/18 08:11 06/24/18 08:11 06/24/18 08:11 06/24/18 08:11 - Physical Exam General Appearance: Yes: Nourished, Appropriately Dressed, Mild Distress. No: Alcohol on Breath, Intoxicated HEENT: positive: EOMI, DOUGIE, Normal Voice, Symmetrical, Hearing Grossly Normal. negative: Scleral Icterus (R), Scleral Icterus (L), Nasal Congestion, Excessive drooling Neck: positive: Trachea midline. negative: Tender, Lymphadenopathy (R), Lymphadenopathy (L), Tender lateral, Tender midline Respiratory/Chest: positive: Lungs Clear, Normal Breath Sounds. negative: Chest Tender, Respiratory Distress, Accessory Muscle Use, Decreased Breath Sounds, Crackles, Rales, Rhonchi, Stridor, Wheezing Cardiovascular: positive: Regular Rhythm, Regular Rate, S1, S2. negative: Systolic Murmur Gastrointestinal/Abdominal: positive: Normal Bowel Sounds, Tender (diffuse throughout abdomen with point of maximal tenderness in the epigastric region), Flat, Soft. negative: Organomegaly, Pulsatile Mass, Rebound Lymphatic: negative: Adenopathy, Tenderness Musculoskeletal: positive: Normal Inspection. negative: CVA Tenderness, Vertebral Tenderness Extremity: positive: Normal Capillary Refill, Normal Inspection, Normal Range of Motion. negative: Tender, Swelling, Calf Tenderness Integumentary: positive: Normal Color, Dry, Warm. negative: Jaundice, Petechiae , Swelling Neurologic: positive: dot compliance specialist II-XII NML intact, Fully Oriented, Alert, Normal Mood/ Affect, Normal Response, Motor Strength 5/5. negative: Facial Droop, Sensory Deficit Heart Score/ECG Review - ECG Intrepretation Comment:: ventricular rate 64 bpm, OH is 164 ms, QRS is 96 ms, QTc is [address] elevations or depressions noted. ED Treatment Course - LABORATORY CBC & Chemistry Diagram: 06/24/18 08:50 06/24/18 08:50 - ADDITIONAL ORDERS Additional order review: Laboratory Results 06/24/18 08:50 Sodium 139 Potassium 4.7 Chloride 104 Carbon Dioxide 24 Anion Gap 11 BUN 17 Creatinine 1.3 Creat Clearance w eGFR > 60 Random Glucose 125 H Calcium 9.2 Total Bilirubin 4.6 H AST 46 H ALT 37 Alkaline Phosphatase 90 Total Protein 7.4 Albumin 4.3 06/24/18 08:50 RBC 5.18 MCV 87.0 MCHC 31.8 L RDW 13.5 MPV 9.3 Neutrophils % 81.7 Lymphocytes % 12.2 Monocytes % 5.2 Eosinophils % 0.1 Basophils % 0.8 - Medications Given in the ED: ED Medications Discontinued Medications Generic Name Dose Route Start Last Admin Trade Name Freq PRN Reason Stop Dose Admin Acetaminophen 1,000 mg 06/24/18 09:37 06/24/18 09:48 Ofirmev Injection - IVPB 06/24/18 09:38 1,000 mg ONCE ONE Administration Diphenhydramine HCl 25 mg 06/24/18 09:37 06/24/18 09:48 Benadryl Injection - IVPB 06/24/18 09:38 25 mg ONCE ONE Administration Metoclopramide HCl 10 mg 06/24/18 09:37 06/24/18 09:48 Reglan Injection - IVPB 06/24/18 09:38 10 mg ONCE ONE Administration Ondansetron HCl 4 mg 06/24/18 08:24 06/24/18 08:57 Zofran Injection IVPUSH 06/24/18 08:25 4 mg ONCE ONE Administration Sodium Chloride 1,000 ml 06/24/18 08:23 06/24/18 08:56 Normal Saline - IV 06/24/18 08:24 1,000 ml ONCE ONE Administration Medical Decision Making - Medical Decision Making 28 yo M with hx of gastritis, pancreatitis, frequent cannabis use, and substance abuse presents to the emergency department with abdominal pain with concurrent nausea and vomiting. Initial vitals: Initial Vital Signs Temp Pulse Resp BP Pulse Ox 97.9 F 66 20 154/90 100 06/24/18 08:11 06/24/18 08:11 06/24/18 08:11 06/24/18 08:11 06/24/18 08:11 Work up abdominal pain likely 2/2 to gastritis given hx of radiation to the throat with acid (possibly GERD) and hyperemesis likely secondary to chronic daily marijuana use. able to continue eating and having output making SBO unlikely. will rule out pancreatitis. CBC, cmp, UA, urine tox, and urine culture were ordered. Lipase was ordered. Laboratory Tests 06/24/18 06/24/18 08:50 08:50 WBC 15.8 H RBC 5.18 Hgb 14.3 Hct 45.1 MCV 87.0 MCH 27.7 MCHC 31.8 L RDW 13.5 Plt Count 197 MPV 9.3 Absolute Neuts (auto) 12.9 H Neutrophils % 81.7 Lymphocytes % 12.2 Monocytes % 5.2 Eosinophils % 0.1 Basophils % 0.8 Nucleated RBC % 0 Sodium 139 Potassium 4.7 Chloride 104 Carbon Dioxide 24 Anion Gap 11 BUN 17 Creatinine 1.3 Creat Clearance w eGFR > 60 Random Glucose 125 H Calcium 9.2 Total Bilirubin 4.6 H AST 46 H ALT 37 Alkaline Phosphatase 90 Total Protein 7.4 Albumin 4.3 Lipase 69 L a RUQ was ordered due to the elevation of bilirubin and ast. on US, it shows biliary sludge but no cholelithiasis or thickening of the gallbladder wall. lipase was within normal limits. he was given IVF, reglan, zofran, and IV tylenol. The patient continued to have nausea that was not tolerable and pain. Haldol was ordered. however, an EKG needed to be performed prior to the administration given the QT prolonging effects of reglan and zofran that was administered prior. The patient became quite upset and impatient. 06/24/18 12:52 Mr. Seals eloped from the department at approximately 12:30 pm. he approached the nursing desk several times asking for pain meds and eventually asked to have his IV pulled out and left the department. at the time, he was able to ambulate on his own and was clinically sober with adequate capacity. *DC/Admit/Observation/Transfer Diagnosis at time of Disposition: Nausea Vomiting Qualifiers: Vomiting type: unspecified Vomiting Intractability: unspecified Nausea presence : with nausea Qualified Code(s): R11.2 - Nausea with vomiting, unspecified Abdominal pain Qualifiers: Abdominal location: epigastric Qualified Code(s): R10.13 - Epigastric pain - Discharge Dispostion Disposition: ELOPED Decision to Admit order: No - Referrals - Patient Instructions - Post Discharge Activity
[2018-06-24 10:15] VITALS: BP 156/89; PULSE 58; TEMP 98.7
[2018-06-24 10:55] LABS: LIPASE 69 U/L (73-393)
[2018-06-24] MEDS ORDERED: HALOPERIDOL LACTATE 5 MG/ML IM ONE (11:35)
[2018-06-24] MEDS ORDERED: SODIUM CHLORIDE 1,000 ML IV STA (11:38)
--- NOTE | 2018-06-24 11:45 | PDOC ---
Attending Attestation - Resident Resident Name: Dedrick Mejía - ED Attending Attestation I have performed the following: I have examined & evaluated the patient, The case was reviewed & discussed with the resident, I agree w/resident's findings & plan, Exceptions are as noted - HPI HPI: 06/24/18 11:43 28 M with h/o gastritis, pancreatitis, prior alcoholism and recreational drug abuse, cannabanoid hyperemesis syndrome, presenting to ED with abdominal pain, N +V. Pt reports daily marijuana use. Since yesterday has had severe epigastric pain with several episodes of NBNB emesis. Denies F/C. No diarrhea. No CP/SOB. - Physicial Exam PE: 06/24/18 11:44 GENERAL: Awake, alert, and fully oriented, in no acute distress. HEAD: No signs of trauma EYES: PERRLA, EOMI, sclera anicteric, conjunctiva clear ENT: Auricles normal inspection, hearing grossly normal, nares patent, oropharynx clear without exudates. Moist mucosa NECK: Nontender, no stepoffs, Normal ROM, supple, no lymphadenopathy, JVD, or masses LUNGS: Breath sounds equal, clear to auscultation bilaterally. No wheezes, and no crackles HEART: Regular rate and rhythm, normal S1 and S2, no murmurs, rubs or gallops ABDOMEN: + diffuse tenderness, non distended, normoactive bowel sounds. No guarding, no rebound. No masses EXTREMITIES: Normal range of motion, no edema. No clubbing or cyanosis. No cords, erythema, or tenderness NEUROLOGICAL: Cranial nerves II through XII intact. 5/5 strength and sensation in all extremities, Normal speech, normal gait, normal cerebellar function SKIN: Warm, Dry, normal turgor, no rashes or lesions noted. - Medical Decision Making 06/24/18 11:45 28 M with N+V+abdominal pain. Likely 2/2 CHS given daily marijuana use. - Labs - RUQ sono - CTAP - EKG - leanna HUNTER haldol 06/24/18 12:56 Pt approached nursing station demanding pain medication. When informed that we needed to obtain an EKG to assess his QTc prior to administering further medication, pt became upset. I attempted to redirect patient and informed him the necessity of the EKG and assured him that he would receive more medication. However, pt demanded to have IV removed, at which point he walked out of the ER , stating he was going to another hospital. Pt was clinically sober and appeared to be of sound mind at time of elopement.
--- NOTE | 2018-06-24 13:28 | EKG ---
Test Reason : Blood Pressure : / mmHG Vent. Rate : 064 BPM Atrial Rate : 064 BPM P-R Int : 164 ms QRS Dur : 096 ms QT Int : 426 ms P-R-T Axes : 071 077 061 degrees QTc Int : 439 ms NORMAL SINUS RHYTHM POSSIBLE LEFT ATRIAL ENLARGEMENT LEFT VENTRICULAR HYPERTROPHY ABNORMAL ECG WHEN COMPARED WITH ECG OF 25-NOV-2017 20:57, NO SIGNIFICANT CHANGE WAS FOUND Confirmed by NORIS VILLAR MD ([id number]) on 06/24/2018 1:28:28 PM Referred By: Confirmed By:NORIS VILLAR MD
== END 2018-06-24 12:30 | disposition left against medical advice (07) ==
LOC: JER 08:02
PROC: 3E033NZ Introduction of Analgesics, Hypnotics, Sedatives into Peripheral Vein, Percutaneous Approach (ICD-10-PCS; principal; 2018-06-24)
PROC: 3E033GC Introduction of Other Therapeutic Substance into Peripheral Vein, Percutaneous Approach (ICD-10-PCS; 2018-06-24)
PROC: 3E033GC Introduction of Other Therapeutic Substance into Peripheral Vein, Percutaneous Approach (ICD-10-PCS; 2018-06-24)
PROC: 3E033GC Introduction of Other Therapeutic Substance into Peripheral Vein, Percutaneous Approach (ICD-10-PCS; 2018-06-24)
DX: F12.988 Cannabis use, unspecified with other cannabis-induced disorder (principal); R10.13 Epigastric pain; Z87.19 Personal history of other diseases of the digestive system
CPT/HCPCS: 36415; 76705-TC; 80053; 83690; 85025; 93005; 93010; 99283-25; J0131; J7030

== ENCOUNTER 2021-05-31 16:11 | Emergency (ER) | payer OTHER ==
[2021-05-31 16:42] VITALS: TEMP 97.6; BMI 27.3
[2021-05-31] MEDS ORDERED: FAMOTIDINE 20 MG/50 ML IVPB 20 MG/50 ML MG IVPB ONE ×2 (17:16→17:34)
[2021-05-31] MEDS ORDERED: ONDANSETRON 4 MG/2 ML VIAL IVPUSH ONE (17:16)
[2021-05-31] MEDS ORDERED: ACETAMINOPHEN 1000 MG/100 ML VIAL IVPB ONE (17:16)
[2021-05-31] MEDS ORDERED: LACTATED RINGERS SOLUTION 1000 ML INFUS.BAG IV ONE (17:16)
[2021-05-31] MEDS ORDERED: ACETAMINOPHEN INJECTION 100 ML IVPB ONE (17:34)
[2021-05-31] MEDS ORDERED: ONDANSETRON 4 MG/2 ML VIAL ONE (17:34)
[2021-05-31 18:12] LABS: BASO % 0.5 % (0-2.0); HEMATOCRIT 45.2 % (35.4-49); HEMOGLOBIN 15.2 GM/dL (11.7-16.9); LYMPH % 9.3 % (8-40); MCH 27.9 pg (25.7-33.7); MCHC 33.6 g/dl (32.0-35.9); MEAN CELL VOLUME 83.1 fl (80-96); MEAN PLT VOLUME 9.5 fl (7.5-11.1); NEUT % 86.2 % (42.8-82.8); PLATELET COUNT 235 10^3/uL (134-434); RBC 5.44 M/mm3 (4.00-5.60); RDW 13.2 % (11.9-15.9); WHITE BLOOD COUNT 13.2 K/mm3 (4.0-10.0)
[2021-05-31 18:20] LABS: CHLORIDE 101 mmol/L (98-107); SODIUM 138 mmol/L (136-145)
[2021-05-31 18:22] LABS: CALCIUM 10.5 mg/dL (8.5-10.1)
[2021-05-31 18:23] LABS: ALBUMIN 4.6 g/dl (3.4-5.0); ANION GAP 13 MMOL/L (8-16); BLOOD UREA NITROGEN 12.7 mg/dL (7-18); CO2 24 mmol/L (21-32); GLUCOSE,RANDOM 114 mg/dL (74-106); LIPASE 41 U/L (73-393)
[2021-05-31 18:26] LABS: CREATININE 1.1 mg/dL (0.55-1.3); SGOT/AST 23 U/L (15-37); SGPT/ALT 35 U/L (13-61)
[2021-05-31 18:27] LABS: BILIRUBIN,TOTAL 3.6 mg/dL (0.2-1); TOT PROT 8.1 g/dl (6.4-8.2)
[2021-05-31 18:28] LABS: ALK PHOS 105 U/L (45-117)
[2021-05-31 19:50] LABS: BILIRUBIN,DIRECT 0.6 mg/dL (0.0-0.2)
[2021-05-31 22:12] VITALS: BP 110/79; PULSE 86
== END 2021-05-31 22:12 | disposition home or self-care (01) ==
LOC: JER 16:11
PROC: 3E0333Z Introduction of Anti-inflammatory into Peripheral Vein, Percutaneous Approach (ICD-10-PCS; principal; 2021-05-31)
PROC: 3E033GC Introduction of Other Therapeutic Substance into Peripheral Vein, Percutaneous Approach (ICD-10-PCS; 2021-05-31)
PROC: 3E033GC Introduction of Other Therapeutic Substance into Peripheral Vein, Percutaneous Approach (ICD-10-PCS; 2021-05-31)
DX: R11.0 Nausea (principal); R11.15 Cyclical vomiting syndrome unrelated to migraine; R17 Unspecified jaundice
CPT/HCPCS: 36415; 71045-TC-FY; 76705-TC; 80053; 82248; 82550; 82553; 83690; 84484; 85025; 93005; 93010; 99285-25; J0131

== ENCOUNTER 2021-06-01 11:30 | Emergency (ER) | payer OTHER ==
[2021-06-01 11:54] VITALS: BP 130/79; PULSE 62; TEMP 97.6; BMI 25.0
[2021-06-01] MEDS ORDERED: FAMOTIDINE 20 MG/50 ML IVPB 20 MG/50 ML MG IVPB ONE ×2 (12:48→12:53)
[2021-06-01] MEDS ORDERED: ONDANSETRON 4 MG/2 ML VIAL IVPUSH ONE (12:48)
[2021-06-01] MEDS ORDERED: HALOPERIDOL LACTATE 5 MG/ML IV ONE ×2 (12:48→14:42)
[2021-06-01] MEDS ORDERED: ONDANSETRON 4 MG/2 ML VIAL ONE (12:53)
[2021-06-01] MEDS ORDERED: HALOPERIDOL LACTATE 5 MG/ML ONE ×2 (12:53→14:57)
[2021-06-01] MEDS ORDERED: LACTATED RINGERS SOLUTION 1000 ML INFUS.BAG IV ONE (13:01)
[2021-06-01 13:23] LABS: BASO % 0.5 % (0-2.0); EOS % 0.1 % (0-4.5); HEMATOCRIT 45.2 % (35.4-49); HEMOGLOBIN 15.5 GM/dL (11.7-16.9); LYMPH % 13.5 % (8-40); MCH 28.3 pg (25.7-33.7); MCHC 34.3 g/dl (32.0-35.9); MEAN CELL VOLUME 82.5 fl (80-96); MEAN PLT VOLUME 9.8 fl (7.5-11.1); MONO % 5.5 % (3.8-10.2); NEUT % 80.4 % (42.8-82.8); PLATELET COUNT 241 10^3/uL (134-434); RBC 5.47 M/mm3 (4.00-5.60); RDW 13.2 % (11.9-15.9); WHITE BLOOD COUNT 14.1 K/mm3 (4.0-10.0)
[2021-06-01 13:47] LABS: BLOOD UREA NITROGEN 13.2 mg/dL (7-18); CALCIUM 10.1 mg/dL (8.5-10.1)
[2021-06-01 13:49] LABS: ALBUMIN 4.4 g/dl (3.4-5.0)
[2021-06-01 13:51] LABS: MAGNESIUM 2.2 mg/dL (1.8-2.4)
[2021-06-01 13:53] LABS: BILIRUBIN,TOTAL 4.6 mg/dL (0.2-1); TOT PROT 7.8 g/dl (6.4-8.2)
[2021-06-01] MEDS ORDERED: ACETAMINOPHEN 1000 MG/100 ML VIAL IVPB ONE (14:10)
[2021-06-01] MEDS ORDERED: ACETAMINOPHEN INJECTION 100 ML IVPB ONE (14:13)
[2021-06-01] MEDS ORDERED: METOCLOPRAMIDE HCL INJECTION 10 MG/2 ML VIAL IVPB ONE (14:43)
[2021-06-01] MEDS ORDERED: METOCLOPRAMIDE HCL INJECTION 10 MG/2 ML VIAL ONE (14:57)
== END 2021-06-01 17:56 | disposition home or self-care (01) ==
LOC: JER 11:30
PROC: 3E033NZ Introduction of Analgesics, Hypnotics, Sedatives into Peripheral Vein, Percutaneous Approach (ICD-10-PCS; principal; 2021-06-01)
PROC: 3E033GC Introduction of Other Therapeutic Substance into Peripheral Vein, Percutaneous Approach (ICD-10-PCS; 2021-06-01)
PROC: 3E033GC Introduction of Other Therapeutic Substance into Peripheral Vein, Percutaneous Approach (ICD-10-PCS; 2021-06-01)
PROC: 3E033GC Introduction of Other Therapeutic Substance into Peripheral Vein, Percutaneous Approach (ICD-10-PCS; 2021-06-01)
PROC: 3E033GC Introduction of Other Therapeutic Substance into Peripheral Vein, Percutaneous Approach (ICD-10-PCS; 2021-06-01)
DX: R11.15 Cyclical vomiting syndrome unrelated to migraine (principal); R11.0 Nausea
CPT/HCPCS: 36415; 80053; 83690; 83735; 85025; 99285-25; J0131

== ENCOUNTER 2021-08-02 10:38 | Emergency (ER) | payer OTHER ==
[2021-08-02 11:29] VITALS: BP 125/73; PULSE 63; TEMP 98.4; BMI 24.3
[2021-08-02] MEDS ORDERED: ONDANSETRON 4 MG/2 ML VIAL IVPUSH ONE (11:48)
[2021-08-02] MEDS ORDERED: SODIUM CHLORIDE 0.9% 1000 ML INFUS.BAG IV ONE (11:48)
[2021-08-02] MEDS ORDERED: ACETAMINOPHEN 1000 MG/100 ML BAG IVPB ONE (11:48)
[2021-08-02] MEDS ORDERED: FAMOTIDINE 20 MG/50 ML IVPB 20 MG/50 ML MG IVPB ONE ×2 (11:48→11:57)
[2021-08-02] MEDS ORDERED: ONDANSETRON 4 MG/2 ML VIAL ONE (11:57)
[2021-08-02] MEDS ORDERED: ACETAMINOPHEN INJECTION 100 ML IVPB ONE (11:57)
[2021-08-02] MEDS ORDERED: HALOPERIDOL LACTATE 5 MG/ML IM ONE (12:37)
[2021-08-02] MEDS ORDERED: HALOPERIDOL LACTATE 5 MG/ML ONE (12:44)
[2021-08-02 12:52] LABS: BASO % 0.3 % (0-2.0); HEMATOCRIT 44.6 % (35.4-49); LYMPH % 10.4 % (8-40); MCHC 33.5 g/dl (32.0-35.9); MEAN CELL VOLUME 83.6 fl (80-96); MEAN PLT VOLUME 9.8 fl (7.5-11.1); MONO % 4.6 % (3.8-10.2); NEUT % 84.7 % (42.8-82.8); PLATELET COUNT 251 10^3/uL (134-434); RBC 5.34 M/mm3 (4.00-5.60); RDW 13.3 % (11.9-15.9); WHITE BLOOD COUNT 16.4 K/mm3 (4.0-10.0)
[2021-08-02 13:09] LABS: BLOOD UREA NITROGEN 14.3 mg/dL (7-18)
[2021-08-02 13:10] LABS: ALBUMIN 4.5 g/dl (3.4-5.0)
[2021-08-02 13:14] LABS: TOT PROT 7.9 g/dl (6.4-8.2)
== END 2021-08-02 14:50 | disposition home or self-care (01) ==
LOC: JER 10:38
PROC: 3E023NZ Introduction of Analgesics, Hypnotics, Sedatives into Muscle, Percutaneous Approach (ICD-10-PCS; principal; 2021-08-02)
PROC: 3E033NZ Introduction of Analgesics, Hypnotics, Sedatives into Peripheral Vein, Percutaneous Approach (ICD-10-PCS; 2021-08-02)
PROC: 3E033GC Introduction of Other Therapeutic Substance into Peripheral Vein, Percutaneous Approach (ICD-10-PCS; 2021-08-02)
PROC: 3E033GC Introduction of Other Therapeutic Substance into Peripheral Vein, Percutaneous Approach (ICD-10-PCS; 2021-08-02)
DX: F12.188 Cannabis abuse with other cannabis-induced disorder (principal)
CPT/HCPCS: 36415; 80053; 83690; 85025; 99284-25; J0131

== ENCOUNTER 2021-08-03 10:32 | Emergency (ER) | payer OTHER ==
[2021-08-03 11:34] VITALS: BMI 24.3
[2021-08-03] MEDS ORDERED: ACETAMINOPHEN 1000 MG/100 ML BAG IVPB ONE ×2 (12:02→12:26)
[2021-08-03] MEDS ORDERED: ONDANSETRON 4 MG/2 ML VIAL IVPUSH ONE ×2 (12:02→12:26)
[2021-08-03] MEDS ORDERED: SODIUM CHLORIDE 1,000 ML IV STA ×2 (12:02→12:26)
[2021-08-03] MEDS ORDERED: FAMOTIDINE 20 MG/50 ML IVPB 20 MG/50 ML MG IVPB ONE ×3 (12:02→13:30)
[2021-08-03] MEDS ORDERED: ACETAMINOPHEN INJECTION 100 ML IVPB ONE (12:24)
[2021-08-03] MEDS ORDERED: ONDANSETRON 4 MG/2 ML VIAL ONE (12:24)
[2021-08-03 13:05] LABS: BASO % 0.4 % (0-2.0); HEMATOCRIT 40.8 % (35.4-49); LYMPH % 8.7 % (8-40); MCH 28.4 pg (25.7-33.7); MCHC 34.4 g/dl (32.0-35.9); MEAN CELL VOLUME 82.6 fl (80-96); MEAN PLT VOLUME 9.5 fl (7.5-11.1); MONO % 2.6 % (3.8-10.2); NEUT % 88.3 % (42.8-82.8); PLATELET COUNT 225 10^3/uL (134-434); RBC 4.94 M/mm3 (4.00-5.60); RDW 13.1 % (11.9-15.9); WHITE BLOOD COUNT 11.1 K/mm3 (4.0-10.0)
[2021-08-03 13:26] LABS: CALCIUM 9.6 mg/dL (8.5-10.1)
[2021-08-03 13:27] LABS: BLOOD UREA NITROGEN 12.5 mg/dL (7-18)
[2021-08-03 13:31] LABS: BILIRUBIN,TOTAL 2.7 mg/dL (0.2-1); TOT PROT 7.2 g/dl (6.4-8.2)
[2021-08-03] MEDS ORDERED: HALOPERIDOL DECANOATE 100 MG/ML IM ONE (13:37)
[2021-08-03 16:04] VITALS: BP 114/62; PULSE 83; TEMP 99
== END 2021-08-03 16:10 | disposition home or self-care (01) ==
LOC: JER 10:32
PROC: 3E0333Z Introduction of Anti-inflammatory into Peripheral Vein, Percutaneous Approach (ICD-10-PCS; principal; 2021-08-03)
PROC: 3E033GC Introduction of Other Therapeutic Substance into Peripheral Vein, Percutaneous Approach (ICD-10-PCS; 2021-08-03)
PROC: 3E033GC Introduction of Other Therapeutic Substance into Peripheral Vein, Percutaneous Approach (ICD-10-PCS; 2021-08-03)
PROC: 3E0337Z Introduction of Electrolytic and Water Balance Substance into Peripheral Vein, Percutaneous Approach (ICD-10-PCS; 2021-08-03)
DX: R11.2 Nausea with vomiting, unspecified (principal)
CPT/HCPCS: 36415; 71046-TC-FY; 80053; 83690; 85025; 93005; 93010; 99285-25

== ENCOUNTER 2021-12-04 09:07 | Inpatient (IN) | payer OTHER ==
[2021-12-04] MEDS ORDERED: SODIUM CHLORIDE 0.9% 500 ML INFUS.BAG IV ONE (09:22)
[2021-12-04] MEDS ORDERED: ACETAMINOPHEN 1000 MG/100 ML BAG IVPB ONE (09:22)
[2021-12-04] MEDS ORDERED: ONDANSETRON 4 MG/2 ML VIAL IVPUSH ONE ×2 (09:23→17:44)
[2021-12-04] MEDS ORDERED: ACETAMINOPHEN INJECTION 100 ML IVPB ONE (09:25)
[2021-12-04] MEDS ORDERED: ONDANSETRON 4 MG/2 ML VIAL ONE ×2 (09:26→18:04)
[2021-12-04 10:10] LABS: BASO % 0.6 % (0-2.0); HEMATOCRIT 40.1 % (35.4-49); HEMOGLOBIN 13.5 GM/dL (11.7-16.9); LYMPH % 22.3 % (8-40); MCH 26.2 pg (25.7-33.7); MCHC 33.8 g/dl (32.0-35.9); MEAN CELL VOLUME 77.5 fl (80-96); MONO % 5.5 % (3.8-10.2); NEUT % 71.6 % (42.8-82.8); PLATELET COUNT 198 10^3/uL (134-434); RBC 5.17 M/mm3 (4.00-5.60); RDW 15.2 % (11.9-15.9); WHITE BLOOD COUNT 7.3 K/mm3 (4.0-10.0)
[2021-12-04 10:29] LABS: BLOOD UREA NITROGEN 5.7 mg/dL (7-18); CALCIUM 9.4 mg/dL (8.5-10.1)
[2021-12-04 10:32] LABS: CREATININE 0.6 mg/dL (0.55-1.3)
[2021-12-04 10:33] LABS: TOT PROT 7.2 g/dl (6.4-8.2)
[2021-12-04 10:34] LABS: BILIRUBIN,TOTAL 2.3 mg/dL (0.2-1)
[2021-12-04] MEDS ORDERED: morphine CARPU-JECT 2 MG/1 ML DISP.SYRIN IVPUSH ONE ×2 (11:36→15:58)
[2021-12-04] MEDS ORDERED: FAMOTIDINE 20 MG/50 ML IVPB 20 MG/50 ML MG IVPB ONE (14:55)
[2021-12-04] MEDS ORDERED: MAG HYDROX/AL HYDROX/SIMETH 30 ML UNIT-DOSE CUP PO ONE (14:55)
[2021-12-04] MEDS ORDERED: LIDOCAINE VISCOUS 2% ORAL/TOP 15 ML UNIT-DOSE CUP MM ONE (14:55)
[2021-12-04] MEDS ORDERED: LIDOCAINE VISCOUS 2% ORAL/TOP 15 ML UNIT-DOSE CUP ONE (15:07)
[2021-12-04] MEDS ORDERED: MAG HYDROX/AL HYDROX/SIMETH 30 ML UNIT-DOSE CUP ONE (15:07)
[2021-12-04] MEDS ORDERED: FAMOTIDINE 10 MG/ML VIAL IVPB ONE (15:08)
[2021-12-04 17:39] LABS: BILIRUBIN,DIRECT 0.5 mg/dL (0.0-0.2)
[2021-12-04 21:00] LABS: COCAINE, UR NEGATIVE (NEGATIVE); METHADONE, UR NEGATIVE (NEGATIVE); OPIATES, URI POSITIVE (NEGATIVE); PHENCYCLIDINE,URINE NEGATIVE (NEGATIVE); URINE AMPHETAMINES NEGATIVE (NEGATIVE); URINE BARBITURATES NEGATIVE (NEGATIVE); URINE BENZODIAZEPINES NEGATIVE (NEGATIVE)
[2021-12-04] MEDS: DEXTROSE 5%-0.45% SALINE 1,000 ML IV SCH (21:24)
[2021-12-04] MEDS: APIXABAN 5 MG TABLET PO SCH (21:26)
[2021-12-04] MEDS: DULoxetine HCL 30 MG CAPSULE.DR PO SCH (21:26)
[2021-12-04] MEDS: DOCUSATE SODIUM 100 MG CAPSULE (FP) PO SCH (21:26)
[2021-12-04 21:28] LABS: URINE APPEARANCE Clear; URINE BILIRUBIN Negative (NEGATIVE); URINE COLOR Yellow; URINE GLUCOSE (UA) Negative (NEGATIVE); URINE KETONE 15 mg/dl (NEGATIVE); URINE LEUK ESTERASE Negative (NEGATIVE); URINE NITRITE Negative (NEGATIVE); URINE PROTEIN Negative (NEGATIVE)
[2021-12-04] MEDS ORDERED: METOCLOPRAMIDE HCL 10 MG TABLET (FP) PO ONE (21:30)
[2021-12-04 23:57] VITALS: BMI 23.9
[2021-12-05] MEDS: ONDANSETRON 4 MG/2 ML VIAL IVPUSH PRN ×2 (00:02→06:06)
[2021-12-05] MEDS: ACETAMINOPHEN 1000 MG/100 ML BAG IVPB PRN ×2 (00:11→08:21)
[2021-12-05] MEDS: DOCUSATE SODIUM 100 MG CAPSULE (FP) PO SCH ×3 (05:38→22:19)
[2021-12-05] MEDS: METOCLOPRAMIDE HCL 10 MG TABLET (FP) PO SCH ×2 (06:08→10:34)
[2021-12-05 09:12] LABS: EOS % 0.8 % (0-4.5); LYMPH % 39.7 % (8-40); MCH 26.2 pg (25.7-33.7); MCHC 34.1 g/dl (32.0-35.9); MEAN CELL VOLUME 76.9 fl (80-96); MEAN PLT VOLUME 8.8 fl (7.5-11.1); MONO % 8.9 % (3.8-10.2); NEUT % 49.6 % (42.8-82.8); PLATELET COUNT 185 10^3/uL (134-434); RBC 4.94 M/mm3 (4.00-5.60); RDW 14.9 % (11.9-15.9); WHITE BLOOD COUNT 4.6 K/mm3 (4.0-10.0)
[2021-12-05 09:23] LABS: CALCIUM 9.1 mg/dL (8.5-10.1)
[2021-12-05 09:24] LABS: ALBUMIN 3.7 g/dl (3.4-5.0); BLOOD UREA NITROGEN 4.5 mg/dL (7-18)
[2021-12-05 09:27] LABS: CREATININE 0.6 mg/dL (0.55-1.3)
[2021-12-05] MEDS: APIXABAN 5 MG TABLET PO SCH ×2 (09:27→22:15)
[2021-12-05] MEDS: DULoxetine HCL 30 MG CAPSULE.DR PO SCH ×2 (09:27→22:15)
[2021-12-05] MEDS: POLYETHYLENE GLYCOL (HEALTHYLAX) 3350 17 GM PACKET PO SCH ×2 (09:28→12:05)
[2021-12-05 09:29] LABS: BILIRUBIN,TOTAL 2.2 mg/dL (0.2-1); TOT PROT 6.5 g/dl (6.4-8.2)
[2021-12-05] MEDS ORDERED: PANTOPRAZOLE 40 MG TABLET PO SCH (10:00)
[2021-12-05] MEDS: DEXTROSE 5%-0.45% SALINE 1,000 ML IV SCH ×2 (12:06→21:47)
[2021-12-05] MEDS ORDERED: KETOROLAC TROMETHAMINE 15 MG/ML VIAL IVPB ONE (12:30)
[2021-12-05] MEDS ORDERED: ONDANSETRON 4 MG/2 ML VIAL IVPB STA (13:34)
[2021-12-05] MEDS ORDERED: ONDANSETRON 4 MG/2 ML VIAL IVPB PRN (13:45)
[2021-12-05] MEDS: METOCLOPRAMIDE HCL INJECTION 10 MG/2 ML VIAL IVPB SCH ×2 (14:55→22:19)
[2021-12-05] MEDS: ONDANSETRON 4 MG/2 ML VIAL IVPB SCH ×3 (14:55→22:16)
[2021-12-05] MEDS ORDERED: POTASSIUM CHLORIDE TABS 20 MEQ TABLET.ER (FP) PO ONE (15:03)
[2021-12-05] MEDS: PANTOPRAZOLE SODIUM 40 MG VIAL IVPUSH SCH (22:19)
[2021-12-06] MEDS ORDERED: MELATONIN 5 MG TABLETS PO ONE (00:15)
[2021-12-06] MEDS: ONDANSETRON 4 MG/2 ML VIAL IVPB SCH (00:51)
[2021-12-06] MEDS: ONDANSETRON 4 MG/2 ML VIAL IVPB PRN ×2 (03:41→10:17)
[2021-12-06] MEDS: DOCUSATE SODIUM 100 MG CAPSULE (FP) PO SCH ×2 (05:37→13:48)
[2021-12-06] MEDS ORDERED: ONDANSETRON 4 MG/2 ML VIAL IVPB PRN (06:00)
[2021-12-06] MEDS: METOCLOPRAMIDE HCL INJECTION 10 MG/2 ML VIAL IVPB SCH ×2 (06:42→13:48)
[2021-12-06] MEDS: APIXABAN 5 MG TABLET PO SCH (10:16)
[2021-12-06] MEDS: DULoxetine HCL 30 MG CAPSULE.DR PO SCH (10:16)
[2021-12-06] MEDS: POLYETHYLENE GLYCOL (HEALTHYLAX) 3350 17 GM PACKET PO SCH (10:17)
[2021-12-06] MEDS: PANTOPRAZOLE SODIUM 40 MG VIAL IVPUSH SCH (10:17)
[2021-12-06 11:02] LABS: BASO % 0.6 % (0-2.0); EOS % 0.8 % (0-4.5); HEMATOCRIT 39.8 % (35.4-49); HEMOGLOBIN 13.4 GM/dL (11.7-16.9); LYMPH % 29.6 % (8-40); MCH 26.3 pg (25.7-33.7); MCHC 33.6 g/dl (32.0-35.9); MEAN CELL VOLUME 78.2 fl (80-96); MEAN PLT VOLUME 8.9 fl (7.5-11.1); MONO % 6.9 % (3.8-10.2); NEUT % 62.1 % (42.8-82.8); PLATELET COUNT 201 10^3/uL (134-434); RBC 5.09 M/mm3 (4.00-5.60); WHITE BLOOD COUNT 6.1 K/mm3 (4.0-10.0)
[2021-12-06 11:28] LABS: ALBUMIN 3.9 g/dl (3.4-5.0)
[2021-12-06 11:30] LABS: CALCIUM 9.4 mg/dL (8.5-10.1)
[2021-12-06 11:33] LABS: CREATININE 0.8 mg/dL (0.55-1.3)
[2021-12-06 11:35] LABS: BILIRUBIN,TOTAL 1.9 mg/dL (0.2-1); TOT PROT 6.9 g/dl (6.4-8.2)
[2021-12-06] MEDS ORDERED: SODIUM PHOSPHATE/NA BIPHOS 133 ML ENEMA RC ONE (13:30)
[2021-12-06] MEDS ORDERED: KETOROLAC TROMETHAMINE 15 MG/ML VIAL IVPUSH ONE (14:00)
[2021-12-06 14:44] VITALS: BP 121/78; PULSE 79; TEMP 98.6
== END 2021-12-06 17:00 | disposition home or self-care (01) | DRG 773 ==
LOC: JER 09:07 → JERBED 16:15 → J7W 20:39
PROVIDERS: ADMIT Family Medicine; ATTEND Family Medicine
DX: F12.188 Cannabis abuse with other cannabis-induced disorder (principal); F11.10 Opioid abuse, uncomplicated; I10 Essential (primary) hypertension; F10.10 Alcohol abuse, uncomplicated; E80.4 Gilbert syndrome; R10.31 Right lower quadrant pain; K56.7 Ileus, unspecified; R11.2 Nausea with vomiting, unspecified; E87.6 Hypokalemia; F41.8 Other specified anxiety disorders; K59.00 Constipation, unspecified; Z86.73 Personal history of transient ischemic attack (TIA), and cerebral infarction without residual deficits
CPT/HCPCS: 36415; 71045-TC-FY; 74160-TC; 74176-TC; 76705-TC; 80053; 80307; 81003; 82248; 83605; 83690; 84484; 85025; 87086; 93005; 93010; 99285-25; C9803-CS; Q9967; U0003; U0005

== ENCOUNTER 2021-12-14 11:49 | Emergency (ER) | payer OTHER ==
[2021-12-14 12:16] VITALS: TEMP 96; BMI 22.1
[2021-12-14] MEDS ORDERED: LACTATED RINGERS SOLUTION 1000 ML INFUS.BAG IV ONE ×2 (12:44→16:11)
[2021-12-14] MEDS ORDERED: ONDANSETRON 4 MG/2 ML VIAL IVPUSH ONE ×2 (12:44→15:26)
[2021-12-14] MEDS ORDERED: ACETAMINOPHEN 1000 MG/100 ML BAG IVPB ONE (12:44)
[2021-12-14] MEDS ORDERED: ONDANSETRON 4 MG/2 ML VIAL ONE ×2 (12:58→15:22)
[2021-12-14] MEDS ORDERED: ACETAMINOPHEN INJECTION 100 ML IVPB ONE (12:58)
[2021-12-14 13:11] LABS: EOS % 0.4 % (0-4.5); HEMATOCRIT 42.3 % (35.4-49); HEMOGLOBIN 14.1 GM/dL (11.7-16.9); LYMPH % 17.4 % (8-40); MCH 26.4 pg (25.7-33.7); MCHC 33.4 g/dl (32.0-35.9); MEAN CELL VOLUME 79.1 fl (80-96); MEAN PLT VOLUME 8.2 fl (7.5-11.1); MONO % 2.5 % (3.8-10.2); NEUT % 78.7 % (42.8-82.8); PLATELET COUNT 281 10^3/uL (134-434); RBC 5.35 M/mm3 (4.00-5.60); RDW 16.2 % (11.9-15.9); WHITE BLOOD COUNT 7.9 K/mm3 (4.0-10.0)
[2021-12-14 13:36] LABS: CALCIUM 10.2 mg/dL (8.5-10.1)
[2021-12-14 13:37] LABS: ALBUMIN 4.4 g/dl (3.4-5.0); BLOOD UREA NITROGEN 8.6 mg/dL (7-18); MAGNESIUM 2.4 mg/dL (1.8-2.4)
[2021-12-14 13:39] LABS: CREATININE 0.8 mg/dL (0.55-1.3)
[2021-12-14 13:44] LABS: TOT PROT 7.6 g/dl (6.4-8.2)
[2021-12-14] MEDS ORDERED: morphine CARPU-JECT 4 MG/1 ML DISP.SYRIN IVPUSH ONE (14:44)
[2021-12-14] MEDS ORDERED: HALOPERIDOL LACTATE 5 MG/ML IV ONE (16:09)
[2021-12-14] MEDS ORDERED: LORazepam 2 MG/ML SDV VIAL IVPUSH ONE (16:11)
[2021-12-14] MEDS ORDERED: HALOPERIDOL LACTATE 5 MG/ML ONE (16:23)
[2021-12-14 17:58] VITALS: BP 119/70; PULSE 75
== END 2021-12-14 19:55 | disposition home or self-care (01) ==
LOC: JER 11:49
PROC: 3E033NZ Introduction of Analgesics, Hypnotics, Sedatives into Peripheral Vein, Percutaneous Approach (ICD-10-PCS; principal; 2021-12-14)
PROC: 3E033GC Introduction of Other Therapeutic Substance into Peripheral Vein, Percutaneous Approach (ICD-10-PCS; 2021-12-14)
DX: R10.84 Generalized abdominal pain (principal)
CPT/HCPCS: 36415; 74176-TC; 80053; 83690; 83735; 85025; 99285-25

== ENCOUNTER 2021-12-18 05:41 | Emergency (ER) | payer OTHER ==
[2021-12-18 05:46] VITALS: BP 145/90; PULSE 69; TEMP 98.5; BMI 28.0
[2021-12-18] MEDS ORDERED: FAMOTIDINE 20 MG/50 ML IVPB 20 MG/50 ML MG IVPB ONE ×2 (06:22→06:27)
[2021-12-18] MEDS ORDERED: ONDANSETRON 4 MG/2 ML VIAL IVPUSH ONE (06:22)
[2021-12-18] MEDS ORDERED: ACETAMINOPHEN 1000 MG/100 ML BAG IVPB ONE (06:22)
[2021-12-18] MEDS ORDERED: SODIUM CHLORIDE 0.9% 500 ML INFUS.BAG IV ONE (06:22)
[2021-12-18] MEDS ORDERED: ONDANSETRON 4 MG/2 ML VIAL ONE (06:27)
[2021-12-18] MEDS ORDERED: ACETAMINOPHEN INJECTION 100 ML IVPB ONE (06:27)
[2021-12-18 06:29] LABS: BASO % 0.6 % (0-2.0); EOS % 2.1 % (0-4.5); HEMATOCRIT 38.8 % (35.4-49); HEMOGLOBIN 12.8 GM/dL (11.7-16.9); LYMPH % 30.6 % (8-40); MCH 26.2 pg (25.7-33.7); MEAN CELL VOLUME 79.4 fl (80-96); MEAN PLT VOLUME 8.1 fl (7.5-11.1); MONO % 7.4 % (3.8-10.2); NEUT % 59.3 % (42.8-82.8); PLATELET COUNT 273 10^3/uL (134-434); RBC 4.89 M/mm3 (4.00-5.60); RDW 16.3 % (11.9-15.9); WHITE BLOOD COUNT 8.6 K/mm3 (4.0-10.0)
[2021-12-18 06:49] LABS: ALBUMIN 3.6 g/dl (3.4-5.0); CALCIUM 9.6 mg/dL (8.5-10.1)
[2021-12-18 06:50] LABS: BLOOD UREA NITROGEN 10.3 mg/dL (7-18)
[2021-12-18 06:52] LABS: CREATININE 0.7 mg/dL (0.55-1.3)
[2021-12-18 06:54] LABS: BILIRUBIN,TOTAL 0.8 mg/dL (0.2-1); TOT PROT 6.6 g/dl (6.4-8.2)
[2021-12-18] MEDS ORDERED: HALOPERIDOL LACTATE 5 MG/ML IM ONE (07:24)
[2021-12-18] MEDS ORDERED: HALOPERIDOL LACTATE 5 MG/ML ONE ×2 (07:38→10:22)
[2021-12-18] MEDS ORDERED: HALOPERIDOL LACTATE 5 MG/ML IV ONE ×2 (07:46→10:16)
[2021-12-18] MEDS ORDERED: morphine CARPU-JECT 2 MG/1 ML DISP.SYRIN IVPUSH ONE (11:17)
[2021-12-18] MEDS ORDERED: KETOROLAC TROMETHAMINE 15 MG/ML VIAL IVPUSH ONE (11:19)
== END 2021-12-18 12:01 | disposition home or self-care (01) ==
LOC: JER 05:41
PROC: 3E033GC Introduction of Other Therapeutic Substance into Peripheral Vein, Percutaneous Approach (ICD-10-PCS; principal; 2021-12-18)
DX: R10.13 Epigastric pain (principal)
CPT/HCPCS: 36415; 71045-TC-FY; 80053; 83690; 84484; 85025; 93005; 93010; 99285-25

== ENCOUNTER 2022-09-13 11:38 | Emergency (ER) | payer OTHER ==
[2022-09-13 11:50] VITALS: BP 139/87; PULSE 67; RESP 22; TEMP 97.4; BMI 20.7
[2022-09-13] MEDS ORDERED: ACETAMINOPHEN 1000 MG/100 ML BAG IVPB ONE (12:19)
[2022-09-13] MEDS ORDERED: SODIUM CHLORIDE 1,000 ML IV STA (12:19)
[2022-09-13] MEDS ORDERED: ONDANSETRON 4 MG/2 ML VIAL IVPUSH ONE ×2 (12:20→13:46)
[2022-09-13] MEDS ORDERED: ONDANSETRON 4 MG/2 ML VIAL ONE ×2 (12:23→13:58)
[2022-09-13] MEDS ORDERED: ACETAMINOPHEN INJECTION 100 ML IVPB ONE (12:23)
[2022-09-13] MEDS ORDERED: morphine CARPU-JECT 4 MG/1 ML DISP.SYRIN IVPUSH ONE ×2 (12:50→13:40)
[2022-09-13 13:16] LABS: BASO % 0.8 % (0-2.0); EOS % 0.4 % (0-4.5); HEMATOCRIT 43.2 % (35.4-49); HEMOGLOBIN 14.6 GM/dL (11.7-16.9); MCHC 33.8 g/dl (32.0-35.9); MEAN CELL VOLUME 85.8 fl (80-96); MEAN PLT VOLUME 8.9 fl (7.5-11.1); NEUT % 75.8 % (42.8-82.8); PLATELET COUNT 272 10^3/uL (134-434); RBC 5.04 M/mm3 (4.00-5.60); RDW 13.7 % (11.9-15.9); WHITE BLOOD COUNT 7.9 K/mm3 (4.0-10.0)
[2022-09-13] MEDS ORDERED: morphine SULFATE 4 MG/ML VIAL ONE (13:20)
[2022-09-13 13:34] LABS: CALCIUM 10.4 mg/dL (8.5-10.1)
[2022-09-13 13:36] LABS: ALBUMIN 4.6 g/dl (3.4-5.0); BLOOD UREA NITROGEN 7.4 mg/dL (7-18)
[2022-09-13 13:39] LABS: CREATININE 0.8 mg/dL (0.55-1.3)
[2022-09-13 13:40] LABS: TOT PROT 7.4 g/dl (6.4-8.2)
[2022-09-13 13:41] LABS: BILIRUBIN,TOTAL 1.4 mg/dL (0.2-1)
[2022-09-13] MEDS ORDERED: HYDROmorphone HCL CARPU-JECT 2 MG/1 ML DISP.SYRIN IVPUSH ONE (13:45)
[2022-09-13] MEDS ORDERED: HYDROmorphone HCl 2 MG/ML VIAL ONE (13:58)
[2022-09-13] MEDS ORDERED: MAG HYDROX/AL HYDROX/SIMETH 30 ML UNIT-DOSE CUP PO ONE (15:23)
[2022-09-13] MEDS ORDERED: MAG HYDROX/AL HYDROX/SIMETH 30 ML UNIT-DOSE CUP ONE (15:30)
[2022-09-13] MEDS ORDERED: LIDOCAINE 5% TOPICAL PATCH TP ONE (15:37)
[2022-09-13] MEDS ORDERED: KETOROLAC TROMETHAMINE 15 MG/ML VIAL IVPUSH ONE (15:37)
[2022-09-13] MEDS ORDERED: LIDOCAINE 5% TOPICAL PATCH ONE (15:38)
[2022-09-13] MEDS ORDERED: KETOROLAC TROMETHAMINE 15 MG/ML VIAL ONE (15:38)
[2022-09-13] MEDS ORDERED: DOCUSATE SODIUM 100 MG CAPSULE (FP) PO ONE ×2 (15:55→16:05)
[2022-09-13] MEDS ORDERED: oxyCODONE HCL 5 MG TABLET PO ONE (16:02)
[2022-09-13] MEDS ORDERED: oxyCODONE HCL 5 MG TABLET ONE (16:06)
[2022-09-13] MEDS ORDERED: LIDOCAINE PATCH REMOVAL MC SCH (22:00)
== END 2022-09-13 16:40 | disposition home or self-care (01) ==
LOC: JER 11:38
PROC: 3E033GC Introduction of Other Therapeutic Substance into Peripheral Vein, Percutaneous Approach (ICD-10-PCS; principal; 2022-09-13)
DX: M54.50 Low back pain, unspecified (principal)
CPT/HCPCS: 36415; 71046-TC-FY; 74177-TC; 80053; 85025; 99285-25; Q9967